=== PATIENT | female | born 1945 | race Caucasian/White ===

== ENCOUNTER 2023-07-20 15:21 | Emergency (ER) | payer OTHER, SELFPAY ==
[2023-07-20 15:26] VITALS: BP 176/69
--- NOTE | 2023-07-20 15:51 | ED.GENMED ---
History of Present Illness
General
Chief Complaint: Urinary Symptoms
Source: patient
Time Seen by Provider: 07/20/23 15:50
Travel History
Have you had any contact with someone who has COVID-19?: No
Do you have any symptoms of coronavirus? Fever > 100 degrees, chills, cough, shortness of breath, sore throat, loss of taste or smell, muscle aches, or headache?: No
History of Present Illness
History of Present Illness:
78-year-old female presents in referral from family doctor's office. She is anticoagulated on Eliquis and has myelodysplastic syndrome. She has had 2 to 3 days worth of pink-colored bloody urine. She denies passing any clots. She denies dysuria
urgency or frequency. No fevers or lightheadedness. No flank pain. She states today the urine is more clear than it has been.
Past History
Past History
ED Past Medical History: Arrthythmia (Atrial fibrillation), HTN, Hypercholesterolemia, NIDDM and Hypothyroidism
ED Past Surgical History: and Other (Parathyroid surgery)
Phy Exam
Physical Exam
Physical Exam:
General: Well-appearing female no acute respiratory distress
HEENT: Normocephalic atraumatic
Heart: Regular rate and rhythm no murmurs
Lungs: Clear to auscultation bilaterally no wheezing
Abdomen: Soft nontender nondistended no guarding or rebound
Extremities: No cyanosis or edema
Course
Orders/Labs/Results
Orders:
Orders
07/20/23 16:00
CT Abd/pel Without Iv Or Oral Urgent
Comment:
Reason For Exam: hematuria
07/20/23 16:15
Complete Blood Count/With Diff Urgent
Comprehensive Metabolic Panel Urgent
Urinalysis Reflex To Culture Urgent
Date Specimen was Collected: 07/20/23
Time Specimen was Collected: 16:07
Urine Microscopic Reflex Cult Urgent
07/20/23 19:14
Cefdinir [Omnicef] 300 mg PO NOW STA
Abnormal Lab Results
07/20/23
16:15
WBC 14.2 H 10^3/uL
(4.8-10.8)
RBC 3.42 L 10^6/uL
(4.20-5.40)
Hgb 9.5 L g/dL
(12.0-16.0)
Hct 28.9 L %
(37.0-47.0)
MCHC 32.9 L g/dL
(33.0-37.0)
Abs Immat Gran (auto) 0.1 H 10^3/uL
(0-0.05)
Absolute Neuts (auto) 11.2 H 10^3/uL
(1.4-6.5)
Absolute Monos (auto) 1.1 H 10^3/uL
(0.1-0.6)
Neutrophils % 78.5 H %
(42.2-75.2)
Lymphocytes % 11.8 L %
(20.5-51.1)
BUN 48 H mg/dl
(7-17)
Creatinine 1.4 H mg/dL
(0.6-1.0)
Ur Occult Blood Reflex 2+ A
(Negative)
Urine RBC 3-6 A /HPF
(0-2)
Urine Bacteria (Reflex) Few A
(Negative)
Urine Glucose 3+ A
(Negative)
Urine Albumin (Reflex) 1+ A
(Neg - Trace)
07/20/23 16:15
07/20/23 16:15
Vital Signs
Initial and Last Documented VS:
Initial Vital Signs
Temp Pulse Resp BP Pulse Ox
98.2 F 73 16 176/69 97
07/20/23 15:26 07/20/23 15:26 07/20/23 15:26 07/20/23 15:26 07/20/23 15:26
Last Documented Vital Signs
Temp Pulse Resp BP Pulse Ox
98.2 F 73 16 176/69 97
07/20/23 15:26 07/20/23 15:26 07/20/23 15:26 07/20/23 15:26 07/20/23 15:26
MDM/Problems Addressed
Differential Diagnosis Includes:
Reported hematuria. Differential could include cystitis versus renal colic. Will check urinalysis and labs. CT pending
*Critical Care Note
Total Time (30-74mins, 75-104mins- exclusive of procedures): Not Applicable
Update Note
Update Note:
CT negative. UA with some bacteria and blood and white blood cells. Will cover for UTI with Omnicef. Hemoglobin stable. Patient nontoxic. Leukocytosis with a white blood cell count of 14 but afebrile no symptoms otherwise. Stable for discharge
with follow-up
ED Attending Note
-
Portions of this chart may have been created with voice recognition software.� Occasional wrong word or��sound alike� substitutions may have occurred due to the inherent limitations of voice recognition software.
Discharge Plan
Departure
Patient Disposition: Home (Routine Discharge)
Date of Disposition: 07/20/23
Time of Disposition: 19:15
Patient with high blood pressure during this ER visit?: No
Discharge Problem:
Acute cystitis
Instructions: Urinary Tract Infection, Adult (DC)
Prescriptions:
New
cefdinir 300 mg capsule
300 mg PO BID Qty: 13 0RF
No Action
metformin 500 mg tablet
500 mg PO DAILY@1700
simvastatin 40 mg tablet
40 mg PO DAILY@1999
diltiazem HCl 300 mg capsule,extended release 24hr
300 mg PO DAILY@1999
fenofibrate nanocrystallized 145 mg tablet
145 mg PO DAILY
Jardiance 10 mg tablet
10 mg PO DAILY
docusate sodium [Colace] 100 mg capsule
100 mg PO BID Qty: 60 0RF
ferrous sulfate [iron] 325 mg (65 mg iron) Tablet
325 mg PO DAILY@1400
metoprolol tartrate 50 mg Tablet
25 mg PO DAILY@2000
Rx Instructions:
07/20/2023, take with 25 mg for a total of 50 mg.
hydralazine 50 mg Tablet
50 mg PO TID
Eliquis 5 mg Tablet
5 mg PO BID
cyanocobalamin (vitamin B-12) 1,000 mcg tablet
1,000 mcg PO DAILY@1400
metoprolol tartrate 50 mg tablet
50 mg PO DAILY
Rx Instructions:
07/20/2023, take with 25 mg for a total of 75 mg.
metoprolol tartrate 25 mg tablet
25 mg PO BID
Referrals:
Dion Bates DO [Family Provider] -
Activity Restrictions/Additional Instructions:
Use antibiotics as directed. Please return here for increasing bleeding fever or other concerning finding. Follow-up with family doctor otherwise to have urine rechecked
Interventions
Interventions:
*Risk Screen - Suicide Last Done: 07/20/23 16:11
*General Assessment Last Done: 07/20/23 16:11
*Neglect/Abuse Screening Last Done: 07/20/23 16:11
ED- Fall Risk Assessment Last Done: 07/20/23 15:45
*ED COVID-19 Vaccine History Last Done: 07/20/23 15:26
ED-Female Genitourinary Assessment Last Done: 07/20/23 15:45
[2023-07-20 16:11] VITALS: BMI 26.7
[2023-07-20 16:24] LABS: % Basophils 0.4 % (0-2); % Eosinophils 1.2 % (0-6); % Immature Granulocytes 0.4 % (0-0.5); % Lymphocytes 11.8 % (20.5-51.1); % Monocytes 7.7 % (1.7-9.3); % Neutrophils 78.5 % (42.2-75.2); Absolute Basophils 0.1 10^3/uL (0-0.2); Absolute Eosinophils 0.2 10^3/uL (0-0.7); Absolute Immature Granulocytes 0.1 10^3/uL (0-0.05); Absolute Lymphocytes 1.7 10^3/uL (1.2-3.4); Absolute Monocytes 1.1 10^3/uL (0.1-0.6); Absolute Neutrophils 11.2 10^3/uL (1.4-6.5); Hematocrit 28.9 % (37.0-47.0); Hemoglobin 9.5 g/dL (12.0-16.0); Mean Corp Hgb Conc. 32.9 g/dL (33.0-37.0); Mean Corpuscular Hgb 27.8 pg (27.0-31.0); Mean Corpuscular Volume 84.5 fL (81.0-99.0); Mean Platelet Volume 9.9 fL (7.4-10.4); Nucleated Red Blood Cells % 0 %; Platelet Count 373 10^3/uL (130-400); Red Blood Cell Count 3.42 10^6/uL (4.20-5.40); Red Cell Dist. Width 13.1 % (11.5-14.5); White Blood Cell Count 14.2 10^3/uL (4.8-10.8)
[2023-07-20 16:30] LABS: Urine Albumin 1+ (Neg - Trace); Urine Bilirubin Negative (Negative); Urine Character Clear (Clear); Urine Color Yellow; Urine Glucose 3+ (Negative); Urine Ketone Negative (Negative); Urine Leukocyte Negative (Negative); Urine Nitrite Negative (Negative); Urine Occult Blood 2+ (Negative); Urine Specific Gravity 1.015 (<1.030); Urine Urobilinogen Negative (Neg - 1+)
[2023-07-20 16:40] LABS: Urine Bacteria Few (Negative); Urine White Cell 0-2 /HPF (0-5)
[2023-07-20 16:41] LABS: ALT (SGPT) 18 U/L (0-35); AST (SGOT) 31 U/L (14-36); Albumin 3.9 g/dl (3.5-5.0); Alkaline Phosphatase 58 U/L (38-126); Blood Urea Nitrogen 48 mg/dl (7-17); Calcium 9.8 mg/dl (8.4-10.2); Carbon Dioxide 22 mmol/L (22-30); Chloride 104 mmol/L (98-107); Estimated Creatinine Clearance 30 ml/min; Glucose 79 mg/dl (70-99); Potassium 4.2 mmol/L (3.5-5.1); Sodium 137 mmol/L (135-145); Total Bilirubin 0.5 mg/dl (0.2-1.3); eGFR 38.03
[2023-07-20 19:27] VITALS: BP 167/92
[2023-07-20] MEDS: OMNICEF 300 MG PO (19:31)
== END 2023-07-20 19:40 | disposition home or self-care (01) ==
LOC: EMR 15:21
PROVIDERS: Physician Assistant; EMERGENCY PHYSICIAN Emergency Medicine; FAMILY PHYSICIAN Family Medicine
DX: N30.01 Acute cystitis with hematuria (principal); Z79.01 Long term (current) use of anticoagulants
CPT/HCPCS: 99284; 74176; 80053; 81003; 81015; 85025

== ENCOUNTER → 2023-07-27 14:51 | Outpatient (REF) | payer OTHER, SELFPAY ==
[2023-07-27 15:02] LABS: % Basophils 0.6 % (0-2); % Eosinophils 2.6 % (0-6); % Immature Granulocytes 0.2 % (0-0.5); % Lymphocytes 16.7 % (20.5-51.1); % Monocytes 7.8 % (1.7-9.3); % Neutrophils 72.1 % (42.2-75.2); Absolute Basophils 0.1 10^3/uL (0-0.2); Absolute Eosinophils 0.3 10^3/uL (0-0.7); Absolute Monocytes 0.9 10^3/uL (0.1-0.6); Absolute Neutrophils 8.5 10^3/uL (1.4-6.5); Hematocrit 30.5 % (37.0-47.0); Mean Corp Hgb Conc. 32.8 g/dL (33.0-37.0); Mean Corpuscular Hgb 27.9 pg (27.0-31.0); Mean Platelet Volume 9.7 fL (7.4-10.4); Platelet Count 324 10^3/uL (130-400); Red Blood Cell Count 3.59 10^6/uL (4.20-5.40); Red Cell Dist. Width 13.2 % (11.5-14.5); White Blood Cell Count 11.7 10^3/uL (4.8-10.8)
[2023-07-27 15:54] LABS: Blood Urea Nitrogen 35 mg/dl (7-17); Iron 60 ug/dl (37-170)
[2023-07-27 16:04] LABS: Percent Saturation 17 % (20-50); Total Iron Binding Capacity 341 ug/dl (265-497)
== END ==
LOC: OIDL 14:51
PROVIDERS: ATTENDING PHYSICIAN Internal Medicine Hematology & Oncology
DX: D50.9 Iron deficiency anemia, unspecified (principal)
CPT/HCPCS: 36415; 82565; 82728; 83540; 83550; 84520; 85025

== ENCOUNTER → 2023-08-17 12:46 | Outpatient (REF) | payer OTHER, SELFPAY ==
[2023-08-17 13:21] LABS: % Basophils 0.4 % (0-2); % Eosinophils 2.3 % (0-6); % Immature Granulocytes 0.2 % (0-0.5); % Monocytes 9.4 % (1.7-9.3); % Neutrophils 74.7 % (42.2-75.2); Absolute Eosinophils 0.2 10^3/uL (0-0.7); Absolute Lymphocytes 1.3 10^3/uL (1.2-3.4); Absolute Monocytes 0.9 10^3/uL (0.1-0.6); Absolute Neutrophils 7.4 10^3/uL (1.4-6.5); Hematocrit 29.3 % (37.0-47.0); Hemoglobin 9.6 g/dL (12.0-16.0); Mean Corp Hgb Conc. 32.8 g/dL (33.0-37.0); Mean Corpuscular Hgb 27.7 pg (27.0-31.0); Mean Corpuscular Volume 84.4 fL (81.0-99.0); Mean Platelet Volume 9.9 fL (7.4-10.4); Platelet Count 285 10^3/uL (130-400); Red Blood Cell Count 3.47 10^6/uL (4.20-5.40); White Blood Cell Count 9.9 10^3/uL (4.8-10.8)
== END ==
LOC: OIDL 12:46
PROVIDERS: ATTENDING PHYSICIAN Internal Medicine Hematology & Oncology; FAMILY PHYSICIAN Family Medicine
DX: D50.9 Iron deficiency anemia, unspecified (principal)
CPT/HCPCS: 36415; 85025

== ENCOUNTER → 2023-09-07 13:26 | Outpatient (REF) | payer OTHER, SELFPAY ==
[2023-09-07 13:36] LABS: % Basophils 0.4 % (0-2); % Immature Granulocytes 0.1 % (0-0.5); % Lymphocytes 15.9 % (20.5-51.1); % Monocytes 16.4 % (1.7-9.3); % Neutrophils 65.2 % (42.2-75.2); Absolute Eosinophils 0.2 10^3/uL (0-0.7); Absolute Lymphocytes 1.3 10^3/uL (1.2-3.4); Absolute Monocytes 1.3 10^3/uL (0.1-0.6); Absolute Neutrophils 5.4 10^3/uL (1.4-6.5); Hemoglobin 10.1 g/dL (12.0-16.0); Mean Corp Hgb Conc. 32.6 g/dL (33.0-37.0); Mean Corpuscular Hgb 27.9 pg (27.0-31.0); Mean Corpuscular Volume 85.6 fL (81.0-99.0); Mean Platelet Volume 10.1 fL (7.4-10.4); Platelet Count 273 10^3/uL (130-400); Red Blood Cell Count 3.62 10^6/uL (4.20-5.40); Red Cell Dist. Width 14.4 % (11.5-14.5); White Blood Cell Count 8.2 10^3/uL (4.8-10.8)
== END ==
LOC: OIDL 13:26
PROVIDERS: ATTENDING PHYSICIAN Internal Medicine Hematology & Oncology; FAMILY PHYSICIAN Family Medicine
DX: D50.9 Iron deficiency anemia, unspecified (principal)
CPT/HCPCS: 36415; 85025

== ENCOUNTER 2023-09-26 15:40 | Emergency (ER) | payer OTHER, SELFPAY ==
[2023-09-26 15:42] VITALS: BP 161/62
[2023-09-26 18:00] VITALS: BP 139/85
--- NOTE | 2023-09-26 18:13 | ED.GENMED ---
History of Present Illness
General
Chief Complaint: Dental Problem
Source: patient
Exam Limitations: none
Time Seen by Provider: 09/26/23 17:33
Nursing documentation reviewed up to this point in time: agreed with
Travel History
Have you had any contact with someone who has COVID-19?: No
Do you have any symptoms of coronavirus? Fever > 100 degrees, chills, cough, shortness of breath, sore throat, loss of taste or smell, muscle aches, or headache?: No
History of Present Illness
History of Present Illness:
78-year-old female with a history of kidney disease, A-fib on Eliquis, hypertension, hyperlipidemia presents to the ER for evaluation of left-sided facial swelling and tooth pain. Patient started with tooth pain several days ago and yesterday
started left-sided facial swelling. She went to urgent care and reports she was sent here to the ER for CAT scan. She reports the swelling is slightly worse than yesterday. She denies any fever chills she denies any difficulty breathing or
difficulty swallowing. She has not been on antibiotics yet. She does not have a dentist.
Past History
Past History
ED Past Medical History: Arrthythmia (Atrial fibrillation), HTN, Hypercholesterolemia, NIDDM and Hypothyroidism
ED Past Surgical History: and Other (Parathyroid surgery)
Review of Systems
Review of Systems
Allergies reviewed?: Yes
All Other Systems: ROS reviewed and negative except as documented in HPI and ROS
Constitutional: Reports no symptoms; Denies fever, fatigue or chills
EENT: Reports other (Left upper tooth pain times past several days left upper facial swelling)
Respiratory: Reports no symptoms; Denies trouble breathing
Musculoskeletal: Reports no symptoms
Skin: Reports no symptoms
Hematologic/Lymphatic: Reports no symptoms
Psychiatric: Reports no symptoms
Phy Exam
General Physical Exam
General Presentation: no apparent distress
General age: appears stated age
General Skin: warm and dry
General Habitus: elderly
General Mental: alert
ENT Exam
ENT Exam: other (Left-sided facial swelling no trismus no drooling tolerating secretions about very poor dental hygiene + loose tooth ? #11 or 12 mildly tender on palpation no erythema to face )
Neurological Exam
Neurological Exam: alert and oriented x3
Musculoskeletal Exam
Musculoskeletal Exam: full ROM and neck pain
Skin Exam
Skin Exam: normal color and warm/dry
Psychiatric Exam
Psychiatric Exam: normal mood/affect
Course
Orders/Labs/Results
Orders:
Orders
09/26/23 18:32
Amoxicillin [Amoxil] 500 mg PO NOW STA
09/26/23 18:52
Amoxicillin [Amoxil] 500 mg PO NOW STA
Vital Signs
Initial and Last Documented VS:
Initial Vital Signs
Temp Pulse Resp BP Pulse Ox
98.9 F 77 18 161/62 95
09/26/23 15:42 09/26/23 15:42 09/26/23 15:42 09/26/23 15:42 09/26/23 15:42
Last Documented Vital Signs
Temp Pulse Resp BP Pulse Ox
98.9 F 68 20 139/85 99
09/26/23 15:42 09/26/23 18:00 09/26/23 18:00 09/26/23 18:00 09/26/23 18:00
MDM/Problems Addressed
Differential Diagnosis Includes:
not limited to: dental cavity, abscess
MDM/Problems Addressed:
Patient is an 78-year-old female with A-fib on Eliquis kidney disease presents to the ER sent by urgent care. Patient started with left upper tooth discomfort for the past several days and noticed swelling yesterday. She went to urgent care today
because of the swelling and was sent here to the ER. She tells me they told her she needed a CAT scan. On exam she is in no acute distress she has mild to moderate swelling to left face but no drooling no difficulty breathing tired secretions well
denies any fevers and she is afebrile no trismus. She has widespread dental decay left upper tooth it is questionable if it is tooth #11 or 12 because of the poor hygiene and missing teeth this is mildly tender and loose on exam.
As patient has a history of kidney disease we will hold off on CAT scan with contrast. Patient is nontoxic no fevers afebrile here. Case reviewed with oral surgery who does state that they can see patient tomorrow. discussed will start pt on
amox. i reviewed plan with pt and daughter importance however to return to the ED if any worsening of symptoms if increasing facial swelling pain fever difficulty opening mouth or any concerns .
Chronic conditions affecting care:
renal disease followed by nephrology
*Pulse Oximetry
Patient hypoxic: no
*Critical Care Note
Total Time (30-74mins, 75-104mins- exclusive of procedures): Not Applicable
ED Attending Note
-
Portions of this chart may have been created with voice recognition software.� Occasional wrong word or��sound alike� substitutions may have occurred due to the inherent limitations of voice recognition software.
Discharge Plan
Departure
Patient Disposition: Home (Routine Discharge)
Date of Disposition: 09/26/23
Time of Disposition: 18:40
Patient with high blood pressure during this ER visit?: Yes
Covid-19: Not Applicable
Discharge Problem:
Abscess, dental
Instructions: Tooth Abscess (DC), Tooth Decay, Adult (DC), BLOOD PRESSURE
Prescriptions:
New
amoxicillin 500 mg capsule
500 mg PO Q8H Qty: 30 0RF
No Action
metformin 500 mg tablet
500 mg PO DAILY@1700
simvastatin 40 mg tablet
40 mg PO DAILY@1999
diltiazem HCl 300 mg capsule,extended release 24hr
300 mg PO DAILY@1999
fenofibrate nanocrystallized 145 mg tablet
145 mg PO DAILY
Jardiance 10 mg tablet
10 mg PO DAILY
docusate sodium [Colace] 100 mg capsule
100 mg PO BID Qty: 60 0RF
ferrous sulfate [iron] 325 mg (65 mg iron) Tablet
325 mg PO DAILY@1400
metoprolol tartrate 50 mg Tablet
25 mg PO DAILY@2000
Rx Instructions:
07/20/2023, take with 25 mg for a total of 50 mg.
hydralazine 50 mg Tablet
50 mg PO TID
Eliquis 5 mg Tablet
5 mg PO BID
cyanocobalamin (vitamin B-12) 1,000 mcg tablet
1,000 mcg PO DAILY@1400
metoprolol tartrate 50 mg tablet
50 mg PO DAILY
Rx Instructions:
07/20/2023, take with 25 mg for a total of 75 mg.
metoprolol tartrate 25 mg tablet
25 mg PO BID
cefdinir 300 mg capsule
300 mg PO BID Qty: 13 0RF
Referrals:
Miriam Chapa DDS [Active] -
Dion Bates DO [Family Provider] -
Activity Restrictions/Additional Instructions:
As discussed please take antibiotic, amoxicillin 3 times daily for the next 10 days. You were given 1 dose here in the ER please try to get another dose in tonight. This medication was sent to your pharmacy as requested.
the oral maxillofacial surgeon office should call you tomorrow morning to schedule an appointment for tomorrow.
If they do not please give them a call to schedule an appointment.
Return if any worsening of symptoms of increasing facial swelling pain fever chills difficulty breathing difficulty opening mouth or any further concerns.
Interventions
Interventions:
*Risk Screen - Suicide Last Done: 09/26/23 15:42
*General Assessment Last Done: 09/26/23 15:42
*Neglect/Abuse Screening Last Done: 09/26/23 15:42
*Nursing Disposition Last Done: 09/26/23 18:57
Discharge Date and Time
Discharge Date/Time: 09/26/23 18:58
Print Language: ROMANIAN
[2023-09-26] MEDS: AMOXIL 500 MG PO ×2 (18:48→18:55)
== END 2023-09-26 18:58 | disposition home or self-care (01) ==
LOC: EMR 15:40
PROVIDERS: EMERGENCY PHYSICIAN Emergency Medicine; FAMILY PHYSICIAN Family Medicine
DX: K04.7 Periapical abscess without sinus (principal); I10 Essential (primary) hypertension; I48.91 Unspecified atrial fibrillation; N28.9 Disorder of kidney and ureter, unspecified; Z79.01 Long term (current) use of anticoagulants
CPT/HCPCS: 99283

== ENCOUNTER → 2023-09-28 12:41 | Outpatient (REF) | payer OTHER, SELFPAY ==
[2023-09-28 12:51] LABS: % Basophils 0.6 % (0-2); % Eosinophils 1.6 % (0-6); % Immature Granulocytes 0.1 % (0-0.5); % Lymphocytes 16.4 % (20.5-51.1); % Monocytes 10.8 % (1.7-9.3); % Neutrophils 70.5 % (42.2-75.2); Absolute Basophils 0.1 10^3/uL (0-0.2); Absolute Eosinophils 0.1 10^3/uL (0-0.7); Absolute Lymphocytes 1.3 10^3/uL (1.2-3.4); Absolute Monocytes 0.9 10^3/uL (0.1-0.6); Absolute Neutrophils 5.6 10^3/uL (1.4-6.5); Hematocrit 31.5 % (37.0-47.0); Hemoglobin 10.3 g/dL (12.0-16.0); Mean Corp Hgb Conc. 32.7 g/dL (33.0-37.0); Mean Corpuscular Hgb 28.2 pg (27.0-31.0); Mean Corpuscular Volume 86.3 fL (81.0-99.0); Mean Platelet Volume 9.9 fL (7.4-10.4); Platelet Count 316 10^3/uL (130-400); Red Blood Cell Count 3.65 10^6/uL (4.20-5.40); Red Cell Dist. Width 13.7 % (11.5-14.5)
== END ==
LOC: OIDL 12:41
PROVIDERS: ATTENDING PHYSICIAN Internal Medicine Hematology & Oncology; FAMILY PHYSICIAN Family Medicine
DX: D50.9 Iron deficiency anemia, unspecified (principal)
CPT/HCPCS: 36415; 85025

== ENCOUNTER → 2023-10-19 10:20 | Outpatient (REF) | payer OTHER, SELFPAY ==
[2023-10-19 11:01] LABS: % Basophils 0.8 % (0-2); % Lymphocytes 23.4 % (20.5-51.1); % Monocytes 9.8 % (1.7-9.3); Absolute Eosinophils 0.2 10^3/uL (0-0.7); Absolute Lymphocytes 1.2 10^3/uL (1.2-3.4); Absolute Monocytes 0.5 10^3/uL (0.1-0.6); Absolute Neutrophils 3.3 10^3/uL (1.4-6.5); Hematocrit 36.5 % (37.0-47.0); Hemoglobin 11.7 g/dL (12.0-16.0); Mean Corp Hgb Conc. 32.1 g/dL (33.0-37.0); Mean Corpuscular Hgb 27.5 pg (27.0-31.0); Mean Corpuscular Volume 85.7 fL (81.0-99.0); Mean Platelet Volume 9.9 fL (7.4-10.4); Platelet Count 268 10^3/uL (130-400); Red Blood Cell Count 4.26 10^6/uL (4.20-5.40); Red Cell Dist. Width 13.7 % (11.5-14.5); White Blood Cell Count 5.3 10^3/uL (4.8-10.8)
== END ==
LOC: OIDL 10:20
PROVIDERS: ATTENDING PHYSICIAN Internal Medicine Hematology & Oncology; FAMILY PHYSICIAN Family Medicine
DX: D50.9 Iron deficiency anemia, unspecified (principal)
CPT/HCPCS: 36415; 85025

== ENCOUNTER → 2023-10-20 09:55 | Outpatient (REF) | payer OTHER, SELFPAY ==
[2023-10-20 11:35] LABS: Iron 71 ug/dl (37-170)
[2023-10-20 11:47] LABS: Percent Saturation 20 % (20-50); Total Iron Binding Capacity 349 ug/dl (265-497)
== END ==
LOC: REG 09:55
PROVIDERS: ATTENDING PHYSICIAN Internal Medicine Hematology & Oncology; FAMILY PHYSICIAN Family Medicine
DX: D50.9 Iron deficiency anemia, unspecified (principal); D50.0 Iron deficiency anemia secondary to blood loss (chronic); D46.9 Myelodysplastic syndrome, unspecified
CPT/HCPCS: 36415; 82728; 83540; 83550

== ENCOUNTER → 2023-11-09 13:08 | Outpatient (REF) | payer OTHER, SELFPAY ==
[2023-11-09 13:27] LABS: % Basophils 0.3 % (0-2); % Eosinophils 2.7 % (0-6); % Immature Granulocytes 0.2 % (0-0.5); % Lymphocytes 16.8 % (20.5-51.1); Absolute Eosinophils 0.3 10^3/uL (0-0.7); Absolute Lymphocytes 1.6 10^3/uL (1.2-3.4); Absolute Monocytes 0.8 10^3/uL (0.1-0.6); Absolute Neutrophils 6.8 10^3/uL (1.4-6.5); Hematocrit 38.9 % (37.0-47.0); Hemoglobin 12.4 g/dL (12.0-16.0); Mean Corp Hgb Conc. 31.9 g/dL (33.0-37.0); Mean Corpuscular Hgb 26.8 pg (27.0-31.0); Mean Platelet Volume 9.9 fL (7.4-10.4); Platelet Count 272 10^3/uL (130-400); Red Blood Cell Count 4.63 10^6/uL (4.20-5.40); Red Cell Dist. Width 13.9 % (11.5-14.5); White Blood Cell Count 9.4 10^3/uL (4.8-10.8)
[2023-11-09 15:55] LABS: Blood Urea Nitrogen 54 mg/dl (7-17); Iron 80 ug/dl (37-170)
[2023-11-09 16:03] LABS: Percent Saturation 22 % (20-50); Total Iron Binding Capacity 363 ug/dl (265-497)
== END ==
LOC: OIDL 13:08
PROVIDERS: ATTENDING PHYSICIAN Internal Medicine Hematology & Oncology
DX: D50.9 Iron deficiency anemia, unspecified (principal)
CPT/HCPCS: 36415; 82565; 82728; 83540; 83550; 84520; 85025

== ENCOUNTER → 2023-12-14 12:26 | Outpatient (REF) | payer OTHER, SELFPAY ==
[2023-12-14 12:42] LABS: % Basophils 0.4 % (0-2); % Immature Granulocytes 0.2 % (0-0.5); % Lymphocytes 18.4 % (20.5-51.1); % Monocytes 9.2 % (1.7-9.3); % Neutrophils 68.8 % (42.2-75.2); Absolute Eosinophils 0.3 10^3/uL (0-0.7); Absolute Lymphocytes 1.5 10^3/uL (1.2-3.4); Absolute Monocytes 0.8 10^3/uL (0.1-0.6); Absolute Neutrophils 5.8 10^3/uL (1.4-6.5); Hematocrit 33.2 % (37.0-47.0); Hemoglobin 10.9 g/dL (12.0-16.0); Mean Corp Hgb Conc. 32.8 g/dL (33.0-37.0); Mean Corpuscular Hgb 27.2 pg (27.0-31.0); Mean Corpuscular Volume 82.8 fL (81.0-99.0); Mean Platelet Volume 10.1 fL (7.4-10.4); Platelet Count 263 10^3/uL (130-400); Red Blood Cell Count 4.01 10^6/uL (4.20-5.40); Red Cell Dist. Width 14.4 % (11.5-14.5); White Blood Cell Count 8.4 10^3/uL (4.8-10.8)
== END ==
LOC: OIDL 12:26
PROVIDERS: ATTENDING PHYSICIAN Internal Medicine Hematology & Oncology
DX: D50.9 Iron deficiency anemia, unspecified (principal)
CPT/HCPCS: 36415; 85025

== ENCOUNTER → 2024-01-04 12:45 | Outpatient (REF) | payer OTHER, SELFPAY ==
[2024-01-04 12:58] LABS: % Basophils 0.5 % (0-2); % Immature Granulocytes 0.2 % (0-0.5); % Lymphocytes 20.4 % (20.5-51.1); % Monocytes 8.5 % (1.7-9.3); % Neutrophils 67.4 % (42.2-75.2); Absolute Eosinophils 0.3 10^3/uL (0-0.7); Absolute Lymphocytes 1.7 10^3/uL (1.2-3.4); Absolute Monocytes 0.7 10^3/uL (0.1-0.6); Absolute Neutrophils 5.7 10^3/uL (1.4-6.5); Hematocrit 34.1 % (37.0-47.0); Hemoglobin 11.1 g/dL (12.0-16.0); Mean Corp Hgb Conc. 32.6 g/dL (33.0-37.0); Mean Corpuscular Hgb 27.3 pg (27.0-31.0); Mean Corpuscular Volume 83.8 fL (81.0-99.0); Mean Platelet Volume 9.9 fL (7.4-10.4); Platelet Count 280 10^3/uL (130-400); Red Blood Cell Count 4.07 10^6/uL (4.20-5.40); Red Cell Dist. Width 15.6 % (11.5-14.5); White Blood Cell Count 8.4 10^3/uL (4.8-10.8)
== END ==
LOC: OIDL 12:45
PROVIDERS: ATTENDING PHYSICIAN Internal Medicine Hematology & Oncology; FAMILY PHYSICIAN Family Medicine
DX: D50.9 Iron deficiency anemia, unspecified (principal); D50.0 Iron deficiency anemia secondary to blood loss (chronic); D46.9 Myelodysplastic syndrome, unspecified
CPT/HCPCS: 36415; 85025

== ENCOUNTER → 2024-01-25 12:23 | Outpatient (REF) | payer OTHER, SELFPAY ==
[2024-01-25 12:40] LABS: % Basophils 0.3 % (0-2); % Eosinophils 3.5 % (0-6); % Immature Granulocytes 0.2 % (0-0.5); % Lymphocytes 19.2 % (20.5-51.1); % Monocytes 8.9 % (1.7-9.3); % Neutrophils 67.9 % (42.2-75.2); Absolute Eosinophils 0.3 10^3/uL (0-0.7); Absolute Lymphocytes 1.7 10^3/uL (1.2-3.4); Absolute Monocytes 0.8 10^3/uL (0.1-0.6); Absolute Neutrophils 5.9 10^3/uL (1.4-6.5); Hematocrit 35.5 % (37.0-47.0); Hemoglobin 11.4 g/dL (12.0-16.0); Mean Corp Hgb Conc. 32.1 g/dL (33.0-37.0); Mean Corpuscular Hgb 27.6 pg (27.0-31.0); Mean Platelet Volume 9.9 fL (7.4-10.4); Platelet Count 260 10^3/uL (130-400); Red Blood Cell Count 4.13 10^6/uL (4.20-5.40); Red Cell Dist. Width 15.5 % (11.5-14.5); White Blood Cell Count 8.8 10^3/uL (4.8-10.8)
== END ==
LOC: OIDL 12:23
PROVIDERS: ATTENDING PHYSICIAN Internal Medicine Hematology & Oncology; FAMILY PHYSICIAN Family Medicine
DX: D50.9 Iron deficiency anemia, unspecified (principal); D50.0 Iron deficiency anemia secondary to blood loss (chronic); D46.9 Myelodysplastic syndrome, unspecified
CPT/HCPCS: 36415; 85025

== ENCOUNTER → 2024-02-15 12:37 | Outpatient (REF) | payer OTHER, SELFPAY ==
[2024-02-15 13:00] LABS: % Basophils 0.4 % (0-2); % Immature Granulocytes 0.1 % (0-0.5); % Monocytes 7.7 % (1.7-9.3); % Neutrophils 75.8 % (42.2-75.2); Absolute Eosinophils 0.2 10^3/uL (0-0.7); Absolute Lymphocytes 1.3 10^3/uL (1.2-3.4); Absolute Monocytes 0.7 10^3/uL (0.1-0.6); Absolute Neutrophils 7.1 10^3/uL (1.4-6.5); Hematocrit 35.4 % (37.0-47.0); Hemoglobin 11.3 g/dL (12.0-16.0); Mean Corp Hgb Conc. 31.9 g/dL (33.0-37.0); Mean Corpuscular Hgb 27.6 pg (27.0-31.0); Mean Corpuscular Volume 86.6 fL (81.0-99.0); Mean Platelet Volume 9.9 fL (7.4-10.4); Platelet Count 253 10^3/uL (130-400); Red Blood Cell Count 4.09 10^6/uL (4.20-5.40); Red Cell Dist. Width 14.8 % (11.5-14.5); White Blood Cell Count 9.4 10^3/uL (4.8-10.8)
[2024-02-15 15:45] LABS: Iron 85 ug/dl (37-170)
[2024-02-15 15:56] LABS: Percent Saturation 25 % (20-50); Total Iron Binding Capacity 333 ug/dl (265-497)
== END ==
LOC: OIDL 12:37
PROVIDERS: ATTENDING PHYSICIAN Internal Medicine Hematology & Oncology; FAMILY PHYSICIAN Family Medicine
DX: D50.9 Iron deficiency anemia, unspecified (principal); D50.0 Iron deficiency anemia secondary to blood loss (chronic); D46.9 Myelodysplastic syndrome, unspecified
CPT/HCPCS: 36415; 82728; 83540; 83550; 85025

== ENCOUNTER → 2024-03-06 11:04 | Outpatient (REF) | payer OTHER, SELFPAY ==
[2024-03-06 13:01] LABS: % Eosinophils 3.1 % (0-6); % Immature Granulocytes 0.3 % (0-0.5); % Lymphocytes 17.5 % (20.5-51.1); % Monocytes 7.3 % (1.7-9.3); % Neutrophils 70.8 % (42.2-75.2); Absolute Basophils 0.1 10^3/uL (0-0.2); Absolute Eosinophils 0.2 10^3/uL (0-0.7); Absolute Lymphocytes 1.2 10^3/uL (1.2-3.4); Absolute Monocytes 0.5 10^3/uL (0.1-0.6); Absolute Neutrophils 4.7 10^3/uL (1.4-6.5); Hematocrit 35.5 % (37.0-47.0); Hemoglobin 11.4 g/dL (12.0-16.0); Mean Corp Hgb Conc. 32.1 g/dL (33.0-37.0); Mean Corpuscular Hgb 27.4 pg (27.0-31.0); Mean Corpuscular Volume 85.3 fL (81.0-99.0); Mean Platelet Volume 10.9 fL (7.4-10.4); Nucleated Red Blood Cells % 0 %; Platelet Count 281 10^3/uL (130-400); Red Blood Cell Count 4.16 10^6/uL (4.20-5.40); Red Cell Dist. Width 14.4 % (11.5-14.5); White Blood Cell Count 6.7 10^3/uL (4.8-10.8)
== END ==
LOC: REG 11:04
PROVIDERS: ATTENDING PHYSICIAN Internal Medicine Hematology & Oncology; FAMILY PHYSICIAN Family Medicine
DX: D50.9 Iron deficiency anemia, unspecified (principal); D50.0 Iron deficiency anemia secondary to blood loss (chronic); D46.9 Myelodysplastic syndrome, unspecified
CPT/HCPCS: 36415; 85025

== ENCOUNTER → 2024-03-28 12:36 | Outpatient (REF) | payer OTHER, SELFPAY ==
[2024-03-28 12:47] LABS: % Basophils 0.4 % (0-2); % Eosinophils 3.2 % (0-6); % Immature Granulocytes 0.1 % (0-0.5); % Lymphocytes 16.8 % (20.5-51.1); % Monocytes 8.8 % (1.7-9.3); % Neutrophils 70.7 % (42.2-75.2); Absolute Eosinophils 0.3 10^3/uL (0-0.7); Absolute Lymphocytes 1.5 10^3/uL (1.2-3.4); Absolute Monocytes 0.8 10^3/uL (0.1-0.6); Absolute Neutrophils 6.5 10^3/uL (1.4-6.5); Hematocrit 37.5 % (37.0-47.0); Hemoglobin 12.2 g/dL (12.0-16.0); Mean Corp Hgb Conc. 32.5 g/dL (33.0-37.0); Mean Corpuscular Hgb 27.7 pg (27.0-31.0); Mean Corpuscular Volume 85.2 fL (81.0-99.0); Mean Platelet Volume 9.7 fL (7.4-10.4); Platelet Count 251 10^3/uL (130-400); Red Cell Dist. Width 13.8 % (11.5-14.5); White Blood Cell Count 9.2 10^3/uL (4.8-10.8)
== END ==
LOC: OIDL 12:36
PROVIDERS: ATTENDING PHYSICIAN Internal Medicine Hematology & Oncology; FAMILY PHYSICIAN Family Medicine
DX: D50.9 Iron deficiency anemia, unspecified (principal); D50.0 Iron deficiency anemia secondary to blood loss (chronic); D46.9 Myelodysplastic syndrome, unspecified
CPT/HCPCS: 36415; 85025

== ENCOUNTER → 2024-04-18 12:48 | Outpatient (REF) | payer OTHER, SELFPAY ==
[2024-04-18 13:02] LABS: % Basophils 0.4 % (0-2); % Eosinophils 2.5 % (0-6); % Immature Granulocytes 0.1 % (0-0.5); % Lymphocytes 16.3 % (20.5-51.1); % Monocytes 8.4 % (1.7-9.3); % Neutrophils 72.3 % (42.2-75.2); Absolute Eosinophils 0.3 10^3/uL (0-0.7); Absolute Lymphocytes 1.6 10^3/uL (1.2-3.4); Absolute Monocytes 0.8 10^3/uL (0.1-0.6); Absolute Neutrophils 7.2 10^3/uL (1.4-6.5); Hematocrit 37.6 % (37.0-47.0); Hemoglobin 12.1 g/dL (12.0-16.0); Mean Corp Hgb Conc. 32.2 g/dL (33.0-37.0); Mean Corpuscular Hgb 26.9 pg (27.0-31.0); Mean Corpuscular Volume 83.7 fL (81.0-99.0); Mean Platelet Volume 9.7 fL (7.4-10.4); Platelet Count 255 10^3/uL (130-400); Red Blood Cell Count 4.49 10^6/uL (4.20-5.40); Red Cell Dist. Width 13.8 % (11.5-14.5); White Blood Cell Count 9.9 10^3/uL (4.8-10.8)
[2024-04-18 13:36] LABS: Blood Urea Nitrogen 38 mg/dl (7-17); Iron 102 ug/dl (37-170)
[2024-04-18 13:45] LABS: Percent Saturation 31 % (20-50); Total Iron Binding Capacity 322 ug/dl (265-497)
== END ==
LOC: OIDL 12:48
PROVIDERS: ATTENDING PHYSICIAN Internal Medicine Hematology & Oncology; FAMILY PHYSICIAN Family Medicine
DX: D50.9 Iron deficiency anemia, unspecified (principal); D50.0 Iron deficiency anemia secondary to blood loss (chronic); D46.9 Myelodysplastic syndrome, unspecified
CPT/HCPCS: 36415; 82565; 82728; 83540; 83550; 84520; 85025

== ENCOUNTER → 2024-05-09 12:35 | Outpatient (REF) | payer OTHER, SELFPAY ==
[2024-05-09 13:36] LABS: % Basophils 0.4 % (0-2); % Eosinophils 2.3 % (0-6); % Immature Granulocytes 0.4 % (0-0.5); % Lymphocytes 15.7 % (20.5-51.1); % Monocytes 8.8 % (1.7-9.3); % Neutrophils 72.4 % (42.2-75.2); Absolute Eosinophils 0.2 10^3/uL (0-0.7); Absolute Lymphocytes 1.5 10^3/uL (1.2-3.4); Absolute Monocytes 0.8 10^3/uL (0.1-0.6); Absolute Neutrophils 6.9 10^3/uL (1.4-6.5); Hematocrit 32.5 % (37.0-47.0); Hemoglobin 10.8 g/dL (12.0-16.0); Mean Corp Hgb Conc. 33.2 g/dL (33.0-37.0); Mean Corpuscular Volume 84.2 fL (81.0-99.0); Mean Platelet Volume 10.7 fL (7.4-10.4); Nucleated Red Blood Cells % 0 %; Platelet Count 250 10^3/uL (130-400); Red Blood Cell Count 3.86 10^6/uL (4.20-5.40); Red Cell Dist. Width 14.5 % (11.5-14.5); White Blood Cell Count 9.5 10^3/uL (4.8-10.8)
== END ==
LOC: OIDL 12:35
PROVIDERS: ATTENDING PHYSICIAN Internal Medicine Hematology & Oncology; FAMILY PHYSICIAN Family Medicine
DX: D50.9 Iron deficiency anemia, unspecified (principal); D50.0 Iron deficiency anemia secondary to blood loss (chronic); D46.9 Myelodysplastic syndrome, unspecified
CPT/HCPCS: 36415; 85025

== ENCOUNTER → 2024-05-30 12:34 | Outpatient (REF) | payer OTHER, SELFPAY ==
[2024-05-30 12:54] LABS: % Basophils 0.5 % (0-2); % Eosinophils 3.3 % (0-6); % Immature Granulocytes 0.4 % (0-0.5); % Lymphocytes 17.2 % (20.5-51.1); % Monocytes 9.6 % (1.7-9.3); Absolute Eosinophils 0.3 10^3/uL (0-0.7); Absolute Lymphocytes 1.3 10^3/uL (1.2-3.4); Absolute Monocytes 0.7 10^3/uL (0.1-0.6); Absolute Neutrophils 5.2 10^3/uL (1.4-6.5); Hemoglobin 9.8 g/dL (12.0-16.0); Mean Corp Hgb Conc. 32.7 g/dL (33.0-37.0); Mean Corpuscular Hgb 27.5 pg (27.0-31.0); Mean Corpuscular Volume 84.3 fL (81.0-99.0); Mean Platelet Volume 9.8 fL (7.4-10.4); Platelet Count 271 10^3/uL (130-400); Red Blood Cell Count 3.56 10^6/uL (4.20-5.40); Red Cell Dist. Width 14.8 % (11.5-14.5); White Blood Cell Count 7.5 10^3/uL (4.8-10.8)
== END ==
LOC: OIDL 12:34
PROVIDERS: ATTENDING PHYSICIAN Internal Medicine Hematology & Oncology; FAMILY PHYSICIAN Family Medicine
DX: D50.9 Iron deficiency anemia, unspecified (principal); D50.0 Iron deficiency anemia secondary to blood loss (chronic); D46.9 Myelodysplastic syndrome, unspecified
CPT/HCPCS: 36415; 85025

== ENCOUNTER → 2024-06-20 12:36 | Outpatient (REF) | payer OTHER, SELFPAY ==
[2024-06-20 13:07] LABS: % Basophils 0.4 % (0-2); % Immature Granulocytes 0.1 % (0-0.5); % Lymphocytes 15.5 % (20.5-51.1); % Monocytes 8.8 % (1.7-9.3); % Neutrophils 73.2 % (42.2-75.2); Absolute Eosinophils 0.2 10^3/uL (0-0.7); Absolute Lymphocytes 1.3 10^3/uL (1.2-3.4); Absolute Monocytes 0.7 10^3/uL (0.1-0.6); Absolute Neutrophils 5.9 10^3/uL (1.4-6.5); Hematocrit 33.1 % (37.0-47.0); Hemoglobin 10.6 g/dL (12.0-16.0); Mean Corpuscular Hgb 27.7 pg (27.0-31.0); Mean Corpuscular Volume 86.4 fL (81.0-99.0); Mean Platelet Volume 9.9 fL (7.4-10.4); Platelet Count 266 10^3/uL (130-400); Red Blood Cell Count 3.83 10^6/uL (4.20-5.40); Red Cell Dist. Width 15.2 % (11.5-14.5); White Blood Cell Count 8.1 10^3/uL (4.8-10.8)
== END ==
LOC: OIDL 12:36
PROVIDERS: ATTENDING PHYSICIAN Internal Medicine Hematology & Oncology; FAMILY PHYSICIAN Family Medicine
DX: D50.9 Iron deficiency anemia, unspecified (principal); D50.0 Iron deficiency anemia secondary to blood loss (chronic); D46.9 Myelodysplastic syndrome, unspecified
CPT/HCPCS: 36415; 85025

== ENCOUNTER → 2024-07-19 12:48 | Outpatient (REF) | payer OTHER, SELFPAY ==
[2024-07-19 13:18] LABS: % Basophils 0.2 % (0-2); % Immature Granulocytes 0.4 % (0-0.5); % Lymphocytes 18.4 % (20.5-51.1); % Monocytes 12.1 % (1.7-9.3); % Neutrophils 67.9 % (42.2-75.2); Absolute Eosinophils 0.1 10^3/uL (0-0.7); Absolute Lymphocytes 0.9 10^3/uL (1.2-3.4); Absolute Monocytes 0.6 10^3/uL (0.1-0.6); Absolute Neutrophils 3.3 10^3/uL (1.4-6.5); Hematocrit 29.9 % (37.0-47.0); Mean Corp Hgb Conc. 33.4 g/dL (33.0-37.0); Mean Corpuscular Hgb 28.4 pg (27.0-31.0); Mean Corpuscular Volume 84.9 fL (81.0-99.0); Mean Platelet Volume 10.2 fL (7.4-10.4); Platelet Count 189 10^3/uL (130-400); Red Blood Cell Count 3.52 10^6/uL (4.20-5.40); Red Cell Dist. Width 13.6 % (11.5-14.5); White Blood Cell Count 4.8 10^3/uL (4.8-10.8)
[2024-07-19 14:47] LABS: Iron 50 ug/dl (37-170)
[2024-07-19 14:56] LABS: Percent Saturation 17 % (20-50); Total Iron Binding Capacity 280 ug/dl (265-497)
== END ==
LOC: OIDL 12:48
PROVIDERS: ATTENDING PHYSICIAN Internal Medicine Hematology & Oncology; FAMILY PHYSICIAN Family Medicine
DX: D50.9 Iron deficiency anemia, unspecified (principal)
CPT/HCPCS: 36415; 82728; 83540; 83550; 85025

== ENCOUNTER → 2024-08-08 12:38 | Outpatient (REF) | payer OTHER, SELFPAY ==
[2024-08-08 13:05] LABS: % Basophils 0.3 % (0-2); % Eosinophils 2.4 % (0-6); % Immature Granulocytes 0.3 % (0-0.5); % Monocytes 10.1 % (1.7-9.3); % Neutrophils 68.9 % (42.2-75.2); Absolute Eosinophils 0.2 10^3/uL (0-0.7); Absolute Lymphocytes 1.4 10^3/uL (1.2-3.4); Absolute Monocytes 0.8 10^3/uL (0.1-0.6); Absolute Neutrophils 5.2 10^3/uL (1.4-6.5); Hematocrit 31.5 % (37.0-47.0); Hemoglobin 10.1 g/dL (12.0-16.0); Mean Corp Hgb Conc. 32.1 g/dL (33.0-37.0); Mean Corpuscular Hgb 28.1 pg (27.0-31.0); Mean Corpuscular Volume 87.5 fL (81.0-99.0); Mean Platelet Volume 9.9 fL (7.4-10.4); Platelet Count 272 10^3/uL (130-400); Red Cell Dist. Width 13.1 % (11.5-14.5); White Blood Cell Count 7.6 10^3/uL (4.8-10.8)
== END ==
LOC: OIDL 12:38
PROVIDERS: ATTENDING PHYSICIAN Internal Medicine Hematology & Oncology; FAMILY PHYSICIAN Family Medicine
DX: D50.9 Iron deficiency anemia, unspecified (principal); D50.0 Iron deficiency anemia secondary to blood loss (chronic); D46.9 Myelodysplastic syndrome, unspecified
CPT/HCPCS: 36415; 85025

== ENCOUNTER → 2024-08-29 12:39 | Outpatient (REF) | payer OTHER, SELFPAY ==
[2024-08-29 13:03] LABS: % Basophils 0.6 % (0-2); % Eosinophils 2.4 % (0-6); % Immature Granulocytes 0.1 % (0-0.5); % Lymphocytes 17.3 % (20.5-51.1); % Monocytes 9.4 % (1.7-9.3); % Neutrophils 70.2 % (42.2-75.2); Absolute Basophils 0.1 10^3/uL (0-0.2); Absolute Eosinophils 0.2 10^3/uL (0-0.7); Absolute Lymphocytes 1.5 10^3/uL (1.2-3.4); Absolute Monocytes 0.8 10^3/uL (0.1-0.6); Absolute Neutrophils 5.9 10^3/uL (1.4-6.5); Hematocrit 33.5 % (37.0-47.0); Hemoglobin 10.8 g/dL (12.0-16.0); Mean Corp Hgb Conc. 32.2 g/dL (33.0-37.0); Mean Corpuscular Hgb 27.8 pg (27.0-31.0); Mean Corpuscular Volume 86.1 fL (81.0-99.0); Mean Platelet Volume 10.2 fL (7.4-10.4); Platelet Count 258 10^3/uL (130-400); Red Blood Cell Count 3.89 10^6/uL (4.20-5.40); Red Cell Dist. Width 13.5 % (11.5-14.5); White Blood Cell Count 8.4 10^3/uL (4.8-10.8)
== END ==
LOC: OIDL 12:39
PROVIDERS: ATTENDING PHYSICIAN Internal Medicine Hematology & Oncology; FAMILY PHYSICIAN Family Medicine
DX: D50.9 Iron deficiency anemia, unspecified (principal); D50.0 Iron deficiency anemia secondary to blood loss (chronic); D46.9 Myelodysplastic syndrome, unspecified
CPT/HCPCS: 36415; 85025

== ENCOUNTER → 2024-09-19 12:30 | Outpatient (REF) | payer OTHER, SELFPAY ==
[2024-09-19 13:17] LABS: % Basophils 0.4 % (0-2); % Eosinophils 1.6 % (0-6); % Immature Granulocytes 0.2 % (0-0.5); % Lymphocytes 14.4 % (20.5-51.1); % Monocytes 7.3 % (1.7-9.3); % Neutrophils 76.1 % (42.2-75.2); Absolute Eosinophils 0.2 10^3/uL (0-0.7); Absolute Lymphocytes 1.3 10^3/uL (1.2-3.4); Absolute Monocytes 0.7 10^3/uL (0.1-0.6); Hematocrit 34.6 % (37.0-47.0); Mean Corp Hgb Conc. 31.8 g/dL (33.0-37.0); Mean Corpuscular Hgb 26.9 pg (27.0-31.0); Mean Corpuscular Volume 84.6 fL (81.0-99.0); Mean Platelet Volume 9.8 fL (7.4-10.4); Platelet Count 278 10^3/uL (130-400); Red Blood Cell Count 4.09 10^6/uL (4.20-5.40); Red Cell Dist. Width 13.9 % (11.5-14.5); White Blood Cell Count 9.2 10^3/uL (4.8-10.8)
== END ==
LOC: OIDL 12:30
PROVIDERS: ATTENDING PHYSICIAN Internal Medicine Hematology & Oncology; FAMILY PHYSICIAN Family Medicine
DX: D50.9 Iron deficiency anemia, unspecified (principal); D50.0 Iron deficiency anemia secondary to blood loss (chronic); D46.9 Myelodysplastic syndrome, unspecified
CPT/HCPCS: 36415; 85025

== ENCOUNTER → 2024-10-10 12:21 | Outpatient (REF) | payer OTHER, SELFPAY ==
[2024-10-10 12:59] LABS: % Basophils 0.4 % (0-2); % Eosinophils 1.8 % (0-6); % Immature Granulocytes 0.1 % (0-0.5); % Lymphocytes 12.9 % (20.5-51.1); % Monocytes 7.7 % (1.7-9.3); % Neutrophils 77.1 % (42.2-75.2); Absolute Eosinophils 0.2 10^3/uL (0-0.7); Absolute Lymphocytes 1.3 10^3/uL (1.2-3.4); Absolute Monocytes 0.8 10^3/uL (0.1-0.6); Absolute Neutrophils 7.5 10^3/uL (1.4-6.5); Hematocrit 34.1 % (37.0-47.0); Hemoglobin 10.9 g/dL (12.0-16.0); Mean Corpuscular Hgb 26.9 pg (27.0-31.0); Mean Corpuscular Volume 84.2 fL (81.0-99.0); Mean Platelet Volume 10.2 fL (7.4-10.4); Platelet Count 264 10^3/uL (130-400); Red Blood Cell Count 4.05 10^6/uL (4.20-5.40); Red Cell Dist. Width 14.3 % (11.5-14.5); White Blood Cell Count 9.7 10^3/uL (4.8-10.8)
== END ==
LOC: OIDL 12:21
PROVIDERS: Registered Nurse; ATTENDING PHYSICIAN Internal Medicine Hematology & Oncology; FAMILY PHYSICIAN Family Medicine
DX: D50.9 Iron deficiency anemia, unspecified (principal); D50.0 Iron deficiency anemia secondary to blood loss (chronic); D46.9 Myelodysplastic syndrome, unspecified
CPT/HCPCS: 36415; 85025

== ENCOUNTER → 2024-10-31 12:31 | Outpatient (REF) | payer OTHER, SELFPAY ==
[2024-10-31 12:58] LABS: % Basophils 0.5 % (0-2); % Eosinophils 1.9 % (0-6); % Immature Granulocytes 0.2 % (0-0.5); % Lymphocytes 14.5 % (20.5-51.1); % Monocytes 8.5 % (1.7-9.3); % Neutrophils 74.4 % (42.2-75.2); Absolute Eosinophils 0.2 10^3/uL (0-0.7); Absolute Lymphocytes 1.2 10^3/uL (1.2-3.4); Absolute Monocytes 0.7 10^3/uL (0.1-0.6); Absolute Neutrophils 6.3 10^3/uL (1.4-6.5); Hematocrit 31.8 % (37.0-47.0); Hemoglobin 10.2 g/dL (12.0-16.0); Mean Corp Hgb Conc. 32.1 g/dL (33.0-37.0); Mean Corpuscular Hgb 27.3 pg (27.0-31.0); Mean Corpuscular Volume 85.3 fL (81.0-99.0); Mean Platelet Volume 10.3 fL (7.4-10.4); Platelet Count 251 10^3/uL (130-400); Red Blood Cell Count 3.73 10^6/uL (4.20-5.40); Red Cell Dist. Width 14.5 % (11.5-14.5); White Blood Cell Count 8.5 10^3/uL (4.8-10.8)
== END ==
LOC: OIDL 12:31
PROVIDERS: ATTENDING PHYSICIAN Internal Medicine Hematology & Oncology; FAMILY PHYSICIAN Family Medicine
DX: D50.9 Iron deficiency anemia, unspecified (principal); D50.0 Iron deficiency anemia secondary to blood loss (chronic); D46.9 Myelodysplastic syndrome, unspecified
CPT/HCPCS: 36415; 85025

== ENCOUNTER → 2024-11-21 12:19 | Outpatient (REF) | payer OTHER, SELFPAY ==
[2024-11-21 13:12] LABS: % Basophils 0.4 % (0-2); % Eosinophils 1.7 % (0-6); % Immature Granulocytes 0.2 % (0-0.5); % Lymphocytes 12.9 % (20.5-51.1); % Monocytes 8.6 % (1.7-9.3); % Neutrophils 76.2 % (42.2-75.2); Absolute Eosinophils 0.1 10^3/uL (0-0.7); Absolute Lymphocytes 1.1 10^3/uL (1.2-3.4); Absolute Monocytes 0.7 10^3/uL (0.1-0.6); Absolute Neutrophils 6.5 10^3/uL (1.4-6.5); Hematocrit 34.6 % (37.0-47.0); Hemoglobin 11.1 g/dL (12.0-16.0); Mean Corp Hgb Conc. 32.1 g/dL (33.0-37.0); Mean Corpuscular Volume 84.2 fL (81.0-99.0); Mean Platelet Volume 10.1 fL (7.4-10.4); Platelet Count 268 10^3/uL (130-400); Red Blood Cell Count 4.11 10^6/uL (4.20-5.40); Red Cell Dist. Width 14.6 % (11.5-14.5); White Blood Cell Count 8.5 10^3/uL (4.8-10.8)
== END ==
LOC: OIDL 12:19
PROVIDERS: ATTENDING PHYSICIAN Internal Medicine Hematology & Oncology; FAMILY PHYSICIAN Family Medicine
DX: D50.9 Iron deficiency anemia, unspecified (principal); D50.0 Iron deficiency anemia secondary to blood loss (chronic); D46.9 Myelodysplastic syndrome, unspecified
CPT/HCPCS: 36415; 85025

== ENCOUNTER → 2024-12-12 12:28 | Outpatient (REF) | payer OTHER, SELFPAY ==
[2024-12-12 13:02] LABS: Hematocrit 33.6 % (37.0-47.0); Hemoglobin 10.7 g/dL (12.0-16.0); Mean Corp Hgb Conc. 31.8 g/dL (33.0-37.0); Mean Corpuscular Volume 84.8 fL (81.0-99.0); Platelet Count 253 10^3/uL (130-400); Red Cell Dist. Width 14.6 % (11.5-14.5)
== END ==
LOC: OIDL 12:28
PROVIDERS: ATTENDING PHYSICIAN Internal Medicine Hematology & Oncology; FAMILY PHYSICIAN Family Medicine
DX: D50.9 Iron deficiency anemia, unspecified (principal); D50.0 Iron deficiency anemia secondary to blood loss (chronic); D46.9 Myelodysplastic syndrome, unspecified
CPT/HCPCS: 36415; 85025

== ENCOUNTER → 2025-01-02 12:27 | Outpatient (REF) | payer OTHER, SELFPAY ==
[2025-01-02 13:21] LABS: Hematocrit 32.2 % (37.0-47.0); Hemoglobin 10.2 g/dL (12.0-16.0); Mean Corp Hgb Conc. 31.7 g/dL (33.0-37.0); Mean Corpuscular Volume 84.7 fL (81.0-99.0); Platelet Count 252 10^3/uL (130-400); Red Cell Dist. Width 14.4 % (11.5-14.5)
[2025-01-02 14:25] LABS: Iron 82 ug/dl (37-170)
[2025-01-02 14:34] LABS: Total Iron Binding Capacity 343 ug/dl (265-497)
[2025-01-02 14:57] LABS: Ferritin 103.0 ng/ml (11.1-264.0)
== END ==
LOC: OIDL 12:27
PROVIDERS: ATTENDING PHYSICIAN Internal Medicine Hematology & Oncology; FAMILY PHYSICIAN Family Medicine
DX: D50.9 Iron deficiency anemia, unspecified (principal); D50.0 Iron deficiency anemia secondary to blood loss (chronic); D46.9 Myelodysplastic syndrome, unspecified
CPT/HCPCS: 36415; 82728; 83540; 83550; 85025

== ENCOUNTER → 2025-01-23 12:33 | Outpatient (REF) | payer OTHER, SELFPAY ==
[2025-01-23 13:00] LABS: Hematocrit 35.4 % (37.0-47.0); Hemoglobin 11.3 g/dL (12.0-16.0); Mean Corp Hgb Conc. 31.9 g/dL (33.0-37.0); Mean Corpuscular Volume 84.5 fL (81.0-99.0); Platelet Count 300 10^3/uL (130-400); Red Cell Dist. Width 14.4 % (11.5-14.5)
== END ==
LOC: OIDL 12:33
PROVIDERS: ATTENDING PHYSICIAN Internal Medicine Hematology & Oncology; FAMILY PHYSICIAN Family Medicine
DX: D50.9 Iron deficiency anemia, unspecified (principal); D50.0 Iron deficiency anemia secondary to blood loss (chronic); D46.9 Myelodysplastic syndrome, unspecified
CPT/HCPCS: 36415; 85025

== ENCOUNTER → 2025-02-13 12:22 | Outpatient (REF) | payer OTHER, SELFPAY ==
[2025-02-13 12:33] LABS: Hematocrit 29.2 % (37.0-47.0); Hemoglobin 9.5 g/dL (12.0-16.0); Mean Corp Hgb Conc. 32.5 g/dL (33.0-37.0); Mean Corpuscular Volume 83.4 fL (81.0-99.0); Platelet Count 283 10^3/uL (130-400); Red Cell Dist. Width 15.0 % (11.5-14.5)
== END ==
LOC: OIDL 12:22
PROVIDERS: ATTENDING PHYSICIAN Internal Medicine Hematology & Oncology; FAMILY PHYSICIAN Family Medicine
DX: D50.9 Iron deficiency anemia, unspecified (principal); D50.0 Iron deficiency anemia secondary to blood loss (chronic); D46.9 Myelodysplastic syndrome, unspecified
CPT/HCPCS: 36415; 85025

== ENCOUNTER → 2025-03-06 12:43 | Outpatient (REF) | payer OTHER, SELFPAY ==
[2025-03-06 13:03] LABS: Hematocrit 29.8 % (37.0-47.0); Hemoglobin 9.5 g/dL (12.0-16.0); Mean Corp Hgb Conc. 31.9 g/dL (33.0-37.0); Mean Corpuscular Volume 85.4 fL (81.0-99.0); Platelet Count 303 10^3/uL (130-400); Red Cell Dist. Width 15.5 % (11.5-14.5)
== END ==
LOC: OIDL 12:43
PROVIDERS: ATTENDING PHYSICIAN Internal Medicine Hematology & Oncology; FAMILY PHYSICIAN Family Medicine
DX: D50.9 Iron deficiency anemia, unspecified (principal); D50.0 Iron deficiency anemia secondary to blood loss (chronic); D46.9 Myelodysplastic syndrome, unspecified
CPT/HCPCS: 36415; 85025

== ENCOUNTER → 2025-03-20 14:28 | Outpatient (REF) | payer OTHER, SELFPAY ==
[2025-03-20 15:56] LABS: Hematocrit 31.9 % (37.0-47.0); Hemoglobin 9.7 g/dL (12.0-16.0); Mean Corp Hgb Conc. 30.4 g/dL (33.0-37.0); Mean Corpuscular Volume 86.9 fL (81.0-99.0); Nucleated Red Blood Cells % 0 %; Platelet Count 333 10^3/uL (130-400); Red Cell Dist. Width 16.1 % (11.5-14.5)
[2025-03-20 16:14] LABS: Iron 22 ug/dl (37-170)
[2025-03-20 16:23] LABS: Total Iron Binding Capacity 389 ug/dl (265-497)
[2025-03-20 16:51] LABS: Ferritin 82.2 ng/ml (11.1-264.0)
== END ==
LOC: REG 14:28
PROVIDERS: ATTENDING PHYSICIAN Internal Medicine Hematology & Oncology; FAMILY PHYSICIAN Family Medicine
DX: D50.9 Iron deficiency anemia, unspecified (principal); D50.0 Iron deficiency anemia secondary to blood loss (chronic); D46.9 Myelodysplastic syndrome, unspecified
CPT/HCPCS: 36415; 82728; 83540; 83550; 85025

== ENCOUNTER → 2025-03-27 12:42 | Outpatient (REF) | payer OTHER, SELFPAY ==
[2025-03-27 13:28] LABS: Hematocrit 28.5 % (37.0-47.0); Hemoglobin 9.0 g/dL (12.0-16.0); Mean Corp Hgb Conc. 31.6 g/dL (33.0-37.0); Mean Corpuscular Volume 86.1 fL (81.0-99.0); Platelet Count 240 10^3/uL (130-400); Red Cell Dist. Width 15.5 % (11.5-14.5)
== END ==
LOC: OIDL 12:42
PROVIDERS: ATTENDING PHYSICIAN Internal Medicine Hematology & Oncology; FAMILY PHYSICIAN Family Medicine
DX: D50.9 Iron deficiency anemia, unspecified (principal); D50.0 Iron deficiency anemia secondary to blood loss (chronic); D46.9 Myelodysplastic syndrome, unspecified
CPT/HCPCS: 36415; 85025

== ENCOUNTER 2025-04-07 14:17 | Inpatient (IN) | payer OTHER, SELFPAY ==
[2025-04-07] VITALS (7 sets, daily range): BP systolic 120–144; BP diastolic 53–67; BMI 25.5; BMI 26.4; BMI 24.9
[2025-04-07 10:38] LABS: Hematocrit 30.3 % (37.0-47.0); Hemoglobin 9.4 g/dL (12.0-16.0); Mean Corp Hgb Conc. 31.0 g/dL (33.0-37.0); Mean Corpuscular Volume 88.6 fL (81.0-99.0); Nucleated Red Blood Cells % 0 %; Platelet Count 280 10^3/uL (130-400); Red Cell Dist. Width 17.0 % (11.5-14.5)
[2025-04-07 10:51] LABS: ALT (SGPT) 18 U/L (0-35); AST (SGOT) 22 U/L (14-36); Albumin 3.8 g/dl (3.5-5.0); Alkaline Phosphatase 49 U/L (38-126); Blood Urea Nitrogen 48 mg/dl (7-17); Calcium 8.9 mg/dl (8.4-10.2); Carbon Dioxide 21 mmol/L (22-30); Chloride 108 mmol/L (98-107); Glucose 122 mg/dl (70-99); Magnesium 2.2 mg/dl (1.6-2.3); Potassium 4.3 mmol/L (3.5-5.1); Sodium 136 mmol/L (135-145); Total Protein 6.6 g/dl (6.3-8.2); eGFR 29.94
[2025-04-07 11:13] LABS: Troponin I 0.050 ng/ml
--- NOTE | 2025-04-07 11:45 | EDRN ---
pt brought back to ED room # 11 and placed on monitor, awaiting for provider to see the pt
--- NOTE | 2025-04-07 11:55 | EDRN ---
awaiting for a provider to see the pt
--- NOTE | 2025-04-07 12:21 | EDRN ---
Emanuel SOW currently at the pts bedside
[2025-04-07] MEDS: LASIX 40 MG IV (12:37)
--- NOTE | 2025-04-07 12:52 | ED.GENMED ---
History of Present Illness
<Emanuel Lott PA-C - Last Filed: 04/07/25 13:41>
General
Chief Complaint: Breathing Problem
Source: patient and family
Time Seen by Provider: 04/07/25 12:17
History of Present Illness
History of Present Illness:
79-year-old female with past medical history of atrial fibrillation, hypertension, hyperlipidemia, cle-[id number] diabetes presenting to the emergency department for evaluation for 2 separate concerns, first concern is some worsening
shortness of breath, generalized fatigue, exertional dyspnea and lower extremity edema over the last 24 hours, today worse. Patient endorses an associated cough, feels as if there is sputum for her to cough up but she is unable to do so. Denies
any fevers, chills, rigors, chest pain, diaphoresis, orthopnea. Patient reports a history of CHF but is not on any diuretics. She follows with service center supervisor, Dr. Phuc Marroquin. She is on anticoagulation for a history of atrial fibrillation and
reports good compliance with this. Patient has secondary concern of accidentally poking herself in the right eye with a pillow 3 or 4 days ago and since that time has had some mild erythema and discharge. No visual disturbances.
Past History
<Emanuel Lott PA-C - Last Filed: 04/07/25 13:41>
Past History
ED Past Medical History: Arrthythmia (Atrial fibrillation), HTN, Hypercholesterolemia, NIDDM and Hypothyroidism
ED Past Surgical History: and Other (Parathyroid surgery)
Social History
Tobacco: Former smoker
Alcohol: None
Drug: None
Personal:
Living: alone
Review of Systems
<Emanuel Lott PA-C - Last Filed: 04/07/25 13:41>
Review of Systems
All Other Systems: ROS reviewed and negative except as documented in HPI and ROS
Phy Exam
<Emanuel Lott PA-C - Last Filed: 04/07/25 13:41>
Physical Exam
Physical Exam:
GENERAL: Alert , in no apparent distress
HEAD: Normocephalic atraumatic
EYE: conjunctiva clear
NECK: Supple, no significant adenopathy.
ENT: o/p clr, mmm.
CARDIAC: Regular rate and rhythm, Faint systolic murmur left sternal border
LUNGS: Bibasilar rails, no acute respiratory distress, speaking full sentences
NEUROLOGICAL: Alert and oriented
SKIN: Warm and dry, skin intact.
MUSCULOSKELETAL: well perfused. 1+ edema to the mid lower legs bilaterally
PSYCH: Normal and appropriate interaction.
Scores
<Emanuel Lott PA-C - Last Filed: 04/07/25 13:41>
Heart Failure Risk
Heart Failure Risk Score: Yes
History of Stroke or TIA: No
History of intubation for respiratory distress: No
Heart rate on ED arrival >/= 110: No
SaO2 <90% on arrival on room air: No
HR >/=110 during 3min walk test (or too ill to perform test): Yes
ECG has acute ischemic changes: No
Urea >/=12mmol/L (BUN 33.6mg/dL): Yes
Serum CO2>/=35mmol/L: No
Troponin I or T elevated to IA Level (0.4mg/dL): No
NT-proBNP >/=5,000ng/L (5,000pg/ml): Yes
HF Risk Score: 4
Admission Status: HIGH RISK 26.1% Consider SNF treatment or admission to hospital
Heart Score for Chest Pain Patients
STEMI patient?: Not applicable
Withdrawal Assessment of Alcohol
Withdrawal Assessment Completed?: Not applicable
<Harshal Hobbs DO - Last Filed: 04/07/25 13:43>
Heart Failure Risk
HF Risk Score: 4
Admission Status: HIGH RISK 26.1% Consider SNF treatment or admission to hospital
Course
<Emanuel Lott PA-C - Last Filed: 04/07/25 13:41>
Orders/Labs/Results
Orders:
Orders
04/07/25 10:15
Electrocardiogram (*1) Urgent
Reason for Study: Shortness of Breath
04/07/25 10:16
EKG- Treatment ONCE
04/07/25 10:20
Complete Blood Count/With Diff Urgent
Comprehensive Metabolic Panel Urgent
Magnesium Urgent
NT-proBNP Urgent
Troponin I Urgent
04/07/25 12:27
Furosemide [Lasix] 40 mg IV NOW STA
CR Chest - 2 Views Urgent
Comment:
Reason For Exam: SOB, CHF
Abnormal Lab Results
04/07/25
10:20
RBC 3.42 L 10^6/uL
(4.20-5.40)
Hgb 9.4 L g/dL
(12.0-16.0)
Hct 30.3 L %
(37.0-47.0)
MCHC 31.0 L g/dL
(33.0-37.0)
RDW 17.0 H %
(11.5-14.5)
MPV 11.3 H fL
(7.4-10.4)
Absolute Lymphs (auto) 0.6 L 10^3/uL
(1.2-3.4)
Absolute Monos (auto) 0.7 H 10^3/uL
(0.1-0.6)
Neutrophils % 82.3 H %
(42.2-75.2)
Lymphocytes % 7.1 L %
(20.5-51.1)
Chloride 108 H mmol/L
(98-107)
Carbon Dioxide 21 L mmol/L
(22-30)
BUN 48 H mg/dl
(7-17)
Creatinine 1.7 H mg/dL
(0.6-1.0)
Glucose 122 H mg/dl
(70-99)
Troponin I 0.050 H* ng/ml
04/07/25 10:20
04/07/25 10:20
Vital Signs
Initial and Last Documented VS:
Initial Vital Signs
Temp Pulse Resp BP Pulse Ox
97.9 F 71 18 144/67 94
04/07/25 10:13 04/07/25 10:13 04/07/25 10:13 04/07/25 10:13 04/07/25 10:13
Last Documented Vital Signs
Temp Pulse Resp BP Pulse Ox
98.6 F 80 32 128/67 93
04/07/25 12:30 04/07/25 12:45 04/07/25 12:45 04/07/25 12:37 04/07/25 13:00
<Harshal Hobbs, - Last Filed: 04/07/25 13:43>
Orders/Labs/Results
Orders:
Orders
04/07/25 10:15
Electrocardiogram (*1) Urgent
Reason for Study: Shortness of Breath
04/07/25 10:16
EKG- Treatment ONCE
04/07/25 10:20
Complete Blood Count/With Diff Urgent
Comprehensive Metabolic Panel Urgent
Magnesium Urgent
NT-proBNP Urgent
Troponin I Urgent
04/07/25 12:27
Furosemide [Lasix] 40 mg IV NOW STA
CR Chest - 2 Views Urgent
Comment:
Reason For Exam: SOB, CHF
Abnormal Lab Results
04/07/25
10:20
RBC 3.42 L 10^6/uL
(4.20-5.40)
Hgb 9.4 L g/dL
(12.0-16.0)
Hct 30.3 L %
(37.0-47.0)
MCHC 31.0 L g/dL
(33.0-37.0)
RDW 17.0 H %
(11.5-14.5)
MPV 11.3 H fL
(7.4-10.4)
Absolute Lymphs (auto) 0.6 L 10^3/uL
(1.2-3.4)
Absolute Monos (auto) 0.7 H 10^3/uL
(0.1-0.6)
Neutrophils % 82.3 H %
(42.2-75.2)
Lymphocytes % 7.1 L %
(20.5-51.1)
Chloride 108 H mmol/L
(98-107)
Carbon Dioxide 21 L mmol/L
(22-30)
BUN 48 H mg/dl
(7-17)
Creatinine 1.7 H mg/dL
(0.6-1.0)
Glucose 122 H mg/dl
(70-99)
Troponin I 0.050 H* ng/ml
04/07/25 10:20
04/07/25 10:20
Vital Signs
Initial and Last Documented VS:
Initial Vital Signs
Temp Pulse Resp BP Pulse Ox
97.9 F 71 18 144/67 94
04/07/25 10:13 04/07/25 10:13 04/07/25 10:13 04/07/25 10:13 04/07/25 10:13
Last Documented Vital Signs
Temp Pulse Resp BP Pulse Ox
98.6 F 80 32 128/67 93
04/07/25 12:30 04/07/25 12:45 04/07/25 12:45 04/07/25 12:37 04/07/25 13:00
<Emanuel Lott PA-C - Last Filed: 04/07/25 13:41>
MDM/Problems Addressed
Differential Diagnosis Includes:
Volume overload
Valvular Dysfunction
Cardiomyopathy
Pericarditis/Myocarditis
ACS
Pneumonia
Anemia
Renal Dysfunction
MDM/Problems Addressed:
79-year-old female presenting to the ER for evaluation of shortness of breath, lower extremity edema and exertional dyspnea over the last 24 hours. Labs initiated on arrival show a BNP of greater than 27,000, slightly elevated troponin which is
likely related to demand ischemia, slightly worse acute on chronic kidney disease and a stable hemoglobin of 9.4. Patient is on iron infusions but was unable to go to the appointment today due to her after mentioned symptoms. Patient currently not
on any diuretics. Will treat here with IV furosemide. Secondary concern of accidentally being poked in the right eye with a pillow 3 days ago and since that time has had some redness and discharge. I suspect a small corneal abrasion. Will treat
with erythromycin ointment. Given the cardiopulmonary concerns and lab abnormalities we will plan for admission for diuresis with cardiology and consultation.
Chronic conditions affecting care: Other (Congestive heart failure)
Acute Exacerbation and/or Progression of Chronic Illness: Other (Congestive heart failure)
<Emanuel Lott PA-C - Last Filed: 04/07/25 13:41>
*Radiology
Radiology exam reviewed: preliminary read by ED provider (Bilateral effusions and interstitial edema)
*Pulse Oximetry
SaO2: 93
Oxygen Mode of Delivery: Room air
Patient hypoxic: no
*EKG
Heart Rate: 72
Rate: normal
Rhythm: sinus
[place]: normal axis
Ischemia: other (ST changes V6)
*Rework Machine Operator Interpretation
Rate: normal
Heart Rate: 76
Rhythm: sinus
*Critical Care Note
Total Time (30-74mins, 75-104mins- exclusive of procedures): Not Applicable
<Emanuel Lott PA-C - Last Filed: 04/07/25 13:41>
Patient Management
Discussion with other providers: Hospitalist
Escalation/DeEscalation of care consider admission/obs:
Chest x-ray shows bilateral effusions. BNP greater than 27,000, troponin slightly elevated at 0.050 which I suspect is related to demand ischemia. Will continue IV diuresis. Hospitalist team notified and accepts for continued evaluation and
treatment with plan for cardiology to see the patient in consultation.
ED Attending Note
<Emanuel Lott PA-C - Last Filed: 04/07/25 13:41>
-
Portions of this chart may have been created with voice recognition software.� Occasional wrong word or��sound alike� substitutions may have occurred due to the inherent limitations of voice recognition software.
<Harshal Hobbs DO - Last Filed: 04/07/25 13:43>
ED Attending Note
Patient seen and examined by attending physician: Yes
I performed the substantive portion of visit, reviewed & personally made and approve the management plan that is documented in note by myself or VINCENT.: Yes
I performed a history and physical exam of patient and discussed management with resident, I reviewed resident's note and agree with documented findings and plan of care.: Yes
ED Attending Note:
79-year-old female presents to the ER for evaluation of shortness of breath dyspnea on exertion and worsening peripheral edema. She reports that she does have a prior history of congestive heart failure but is not on any long-term diuretics. She
denies any recent change in her diet but she did eat out at a restaurant last night. Vital signs reviewed, patient is awake, alert, appears no acute distress, conjunctiva pale, mucous membranes moist, heart regular rate and rhythm no murmurs or
ectopy, diminished air movement bilateral bases lungs otherwise clear to auscultation, 2+ DP pulses present symmetric bilateral feet, 2+ edema present to bilateral lower extremities to the knee, GCS is 15. Patient was given IV Lasix by physician
school bus driver/teacher assistant. We reviewed all test results. I discussed with patient and daughter present at bedside benefit of admission for diuresis and further care. They agree with plan and have no questions at the current time.
Discharge Plan
Departure
Patient Disposition: Admit
Date of Disposition: 04/07/25
Time of Disposition: 13:35
Presentation/result/management discussed w/ accepting MD/DO: Hospitalist
Discharge Problem:
CHF (congestive heart failure), ANTHONY (acute kidney injury), Anemia
Prescriptions:
No Action
metformin 500 mg tablet
500 mg PO QPM
diltiazem HCl 300 mg capsule,extended release 24hr
300 mg PO HS
fenofibrate nanocrystallized 145 mg tablet
145 mg PO DAILY
Jardiance 10 mg tablet
10 mg PO DAILY
ferrous sulfate [iron] 325 mg (65 mg iron) Tablet
325 mg PO DAILY
metoprolol tartrate 50 mg Tablet
25 mg PO QPM
hydralazine 50 mg Tablet
50 mg PO TID
Eliquis 5 mg Tablet
5 mg PO BID
cyanocobalamin (vitamin B-12) 1,000 mcg tablet
1,000 mcg PO DAILY
metoprolol tartrate 50 mg tablet
50 mg PO DAILY
rosuvastatin [Crestor] 10 mg Tablet
10 mg PO QPM
docusate sodium [Colace] 100 mg capsule
100 mg PO BID
Referrals:
Dion Bates DO [Family Provider, Family Practice]
Interventions
Interventions:
*Risk Screen - Suicide Last Done: 04/07/25 12:30
*General Assessment Last Done: 04/07/25 12:30
*Neglect/Abuse Screening Last Done: 04/07/25 12:30
*ED- Fall Risk Assessment Last Done: 04/07/25 12:30
*ED COVID-19 Vaccine History Last Done: 04/07/25 12:30
*ED Influenza Vaccine History Last Done: 04/07/25 12:30
ED- Cardiac Assessment Last Done: 04/07/25 12:30
ED- Pulmonary Assessment Last Done: 04/07/25 12:30
Discharge Date and Time
Print Language: MARTINIQUAIS
--- NOTE | 2025-04-07 13:45 | EDRN ---
hospitalist currently at the pts bedside
--- NOTE | 2025-04-07 13:58 | HPS.HSE ---
Family Physician
-
Family Physician: Dion Btaes
Chief Complaint
-
shortness of breath
History of Present Illness
79-year-old female past medical history of hiatal hernia, gastric polyps, paroxysmal atrial fibrillation, CHF, myelodysplastic syndrome, hypertension, hyperlipidemia, type 2 diabetes, CKD 3, presenting for worsening shortness of breath, generalized
fatigue and exertional dyspnea and lower extremity edema over the past 24 hours. She has cough and feels that there is sputum unable to cough it up. Denies any fevers or chills, sweats, chest pain or sweating. She has a history of CHF but is not
on any diuretics. Unsure if she has gained any weight. She sees Dr. Marroquin.
She accidentally poked herself in the right eye with a pillow 3 to 4 days ago and has since had some mild erythema and yellow discharge from the right eye. Denies any vision loss.
She denies smoking or alcohol use.
Medical History
Past Medical History
Past Medical History: Reports Other (hiatal hernia, gastric polyps, paroxysmal atrial fibrillation, CHF, myelodysplastic syndrome, hypertension, hyperlipidemia, type 2 diabetes, CKD 3,)
Past Surgical History: Reports Other ( and Other (Parathyroid surgery))
Social History
Tobacco: Non-smoker
Alcohol: None
Drug: None
Family History
Family History: Not pertinent
Allergies / Home Medications
Allergies reflects when Allergies were last updated in [employer].
Home Medications with original date entered in [employer]
Allergy/Medication List:
Allergies
Allergy/AdvReac Type Severity Reaction Status Date / Time
No Known Allergies Allergy Verified 07/20/23 15:29
Home Medications
diltiazem HCl 300 mg capsule,extended release 24 hr 300 mg PO HS Blood pressure 05/06/22
empagliflozin 10 mg tablet (Jardiance) 10 mg PO DAILY Diabetes 05/06/22
fenofibrate nanocrystallized 145 mg tablet 145 mg PO DAILY High cholesterol 12/02/22
metformin 500 mg tablet 500 mg PO QPM Diabetes 05/06/22
apixaban 5 mg tablet (Eliquis) 5 mg PO BID Blood Clot Prevention/Tx 07/20/23
cyanocobalamin (vitamin B-12) 1,000 mcg tablet 1,000 mcg PO DAILY Supplement 07/20/23
ferrous sulfate 325 mg (65 mg iron) tablet (iron) 325 mg PO DAILY Supplement 07/20/23
hydralazine 50 mg tablet 50 mg PO TID Blood Pressure 07/20/23
metoprolol tartrate 50 mg tablet 25 mg PO QPM Blood Pressure 07/20/23
metoprolol tartrate 50 mg tablet 50 mg PO DAILY Blood Pressure 07/20/23
docusate sodium 100 mg capsule (Colace) 100 mg PO BID Constipation 04/07/25
rosuvastatin 10 mg tablet (Crestor) 10 mg PO QPM High Cholesterol 04/07/25
Review of Systems
-
History Source: Patient
A 12 point ROS was completed and negative except as noted: Yes
Constitutional: Reports No Symptoms
EENT: Reports No Symptoms
Respiratory: Reports See HPI
Cardiac: Reports No Symptoms
Abdomen/GI: Reports No Symptoms
: Reports No Symptoms
Musculoskeletal: Reports No Symptoms
Skin: Reports No Symptoms
Neurological: Reports No Symptoms
Endocrine: Reports No Symptoms
Hematologic/Lymphatic: Reports No Symptoms
Psych: Reports No Symptoms
Physical Exam
Vital Signs
Vital Signs
Temp Pulse Resp BP Pulse Ox
98.6 F 80 32 128/67 93
04/07/25 12:30 04/07/25 12:45 04/07/25 12:45 04/07/25 12:37 04/07/25 13:00
Physical Exam
General: Well Developed, Well Nourished and No Apparent Distress
HEENT: NormoCephalic, Moist mucous membranes and Atraumatic
Respiratory: Clear
Cardiac: S1/S2, Regular Rhythm and Peripheral Edema; No Murmur or Rub
GI: Soft, Non Tender, Non Distended and Normal Bowel Sounds; No Organomegaly
Rectal: Deferred by Provider
Musculoskeletal: No Clubbing, No Cyanosis and No Edema
Skin: No Rash
Neuro: Nonfocal/grossly intact
Laboratory Results
-
04/07/25 10:20
04/07/25 10:20
Laboratory Results
Total Bilirubin 0.5 mg/dl (0.2-1.3) 04/07/25 10:20
AST 22 U/L (14-36) 04/07/25 10:20
ALT 18 U/L (0-35) 04/07/25 10:20
Alkaline Phosphatase 49 U/L (38-126) 04/07/25 10:20
Troponin I 0.050 ng/ml H* 04/07/25 10:20
Data Reviewed
-
Lab Data: Labs Reviewed by me
Old Records: Reviewed
Impression/Plan
-
IMPRESSION:
PLAN:
# Acute on chronic CHF exacerbation
-Chest x-ray shows small loculated right pleural effusion and trace left pleural effusion with adjacent airspace opacities favored to represent atelectasis, mild rightward deviation of the upper trachea which may be secondary to enlarged thyroid
-Cardiac BNP 27,000
- Check I's and O's, daily weight
- 40 IV Lasix daily
- Cardiology consulted
# Nonischemic myocardial injury secondary to CHF
-No chest pain
- Troponin 0.05
-Trend troponins
- EKG shows normal sinus rhythm, LVH, ST elevation in V2, nonspecific T wave inversions
# Slight ANTHONY on CKD 3 versus CKD
- Creatinine 1.7 from baseline of around 1.3
- Monitor with diuresis
# Right eye conjunctivitis from pillow injury
- The
Paroxysmal atrial fibrillation
- Continue Eliquis
- Continue Cardizem
- Continue metoprolol
Myelodysplastic syndrome
Chronic anemia
- Continue ferrous sulfate
- Hemoglobin stable 9.4
- Has been receiving iron infusion every other day today would have been the fifth and final session
Essential hypertension
- Continue hydralazine
Hiatal hernia
Gastric polyps
Hyperlipidemia
- Continue statin, fenofibrate
Type 2 diabetes
- hold metformin
- Insulin sliding scale
- Continue Jardiance
Full code
DVT prophylaxis�Eliquis
cardiac diet
--- NOTE | 2025-04-07 15:13 | CM ---
Chart reviewed. Met with patient, dtr Kenan and johnna Vergara 21 yo at ED bedside
She lives in dtr Kenan's house with dtr. 2 Story home [address] and 1st floor set up
Per dtr Kenan patient would stay with her for now [address] [place]
Independent with ADLs, ambulation. Drives
no DME
PCP Dr. Dion Bates
RX plan yes
Pharmacy [facility] in [place]
no hx of VN nor SNF
Dtr and pt NOT interested in setting up VN at the time of DC
DCP back to dtr's home , dtr can provide transportation
CM to follow up for any dcp needs
[2025-04-07] MEDS: LOPRESSOR 25 MG PO (15:37)
[2025-04-07] MEDS: APRESOLINE 50 MG PO ×2 (15:37→21:01)
--- NOTE | 2025-04-07 16:06 | CON.CAR ---
Consultation
Consultation Request
Date/Time Consultation Requested: 04/07/2025, 1415
Date/Time Consultation Performed: 04/07/2025, 1600
Requesting Provider: Dr. Granados
Performing Provider: INGRID Fernandez for Dr. Marroquin
Reason for Consultation: Heart failure exacerbation
Medical History
-
Chief Complaint: Shortness of breath and lower extremity edema
History of Present Illness:
79-year-old female with past medical history hypertension, hyperlipidemia, paroxysmal atrial fibrillation, type 2 diabetes, chronic kidney disease stage III, heart failure, myelo dysplastic syndrome followed by Dr. Batres who presents to ED with
2-week history of lower extremity edema and 1 to 2-day history of dyspnea on exertion.
No chest pain, palpitations, lightheadedness, syncope. No known weight gain. Denies PND, orthopnea
She has been in her usual state of health except recently started iron infusions last week and since then has felt more fatigued.
ED workup: proBNP greater than 27,000
Troponin 0.050�0.053
Hemoglobin 9.4, WBC 7.7, platelet 280, NA 136, K4.3, BUN/creatinine 48/1.7, magnesium 2.2, LFTs within normal limits
Chest x-ray: Small loculated right-sided pleural effusion, trace left pleural effusion, bilateral airspace opacities likely atelectasis
EKG: Normal sinus rhythm anterior lateral ST-T wave abnormality
Past medical history:
Hypertension
Hyperlipidemia
Paroxysmal A-fib
Type 2 diabetes
Chronic kidney disease stage III
Heart failure
Myelodysplastic syndrome
Past Medical History
Past Medical History: Other (As above)
Past Surgical History: Other (Parathyroid removed, kidney procedure, )
Social History
Tobacco: Former Smoker
Alcohol: None
Drug: None
Family History
Family History: Reviewed & Not Pertinent
Allergies / Home Medications
Allergy/AdvReac Type Severity Reaction Status Date / Time
No Known Allergies Allergy Verified 07/20/23 15:29
�Medication �Instructions �Recorded �Confirmed �Type
diltiazem HCl 300 mg 300 mg PO HS Blood pressure 05/06/22 04/07/25 History
capsule,extended release 24 hr
empagliflozin 10 mg tablet 10 mg PO DAILY Diabetes 05/06/22 04/07/25 History
(Jardiance)
fenofibrate nanocrystallized 145 145 mg PO DAILY High cholesterol 05/06/22 04/07/25 History
mg tablet
metformin 500 mg tablet 500 mg PO QPM Diabetes 05/06/22 04/07/25 History
apixaban 5 mg tablet (Eliquis) 5 mg PO BID Blood Clot 07/20/23 04/07/25 History
Prevention/Tx
cyanocobalamin (vitamin B-12) 1,000 mcg PO DAILY Supplement 07/20/23 04/07/25 History
1,000 mcg tablet
ferrous sulfate 325 mg (65 mg 325 mg PO DAILY Supplement 07/20/23 04/07/25 History
iron) tablet (iron)
hydralazine 50 mg tablet 50 mg PO TID Blood Pressure 07/20/23 04/07/25 History
metoprolol tartrate 50 mg tablet 25 mg PO QPM Blood Pressure 07/20/23 04/07/25 History
metoprolol tartrate 50 mg tablet 50 mg PO DAILY Blood Pressure 07/20/23 04/07/25 History
docusate sodium 100 mg capsule 100 mg PO BID Constipation 04/07/25 04/07/25 History
(Colace)
rosuvastatin 10 mg tablet (Crestor) 10 mg PO QPM High Cholesterol 04/07/25 04/07/25 History
Review of Systems
-
History Source: Patient
All other systems: Negative unless noted
Physical Exam
Vital Signs
Temp Pulse Resp BP Pulse Ox
98.6 F 80 32 128/67 93
04/07/25 12:30 04/07/25 12:45 04/07/25 12:45 04/07/25 12:37 04/07/25 13:00
Lab Results
04/07/25 10:20
04/07/25 10:20
Troponin I 0.050 ng/ml H* 04/07/25 10:20
Vcf-N-Ltuqzobmvhy Pept > 19637 pg/ml 04/07/25 10:20
GEN: No distress, awake, Ox3
HEENT: supple, anicteric, mmm
LUNGS: Rales bilateral bases
CV: Reg, S1/S2, no murmur
ABD: soft, BS+, NT/ND
EXT: Trace bilateral lower extremity edema to shins
NEURO: Gross non-focal
SKIN: No rash
Impression / Plan
-
PCP: Dion Bates
Primary damage appraiser: Dr. Marroquin
Impression:
Shortness of breath
Lower extremity edema
Acute heart failure
Elevated troponin
Hypertension
Paroxysmal atrial fibrillation
MDS
Hyperlipidemia
chronic kidney disease
Diabetes mellitus
Plan: 79-year-old female with history of hypertension, hyperlipidemia, paroxysmal A-fib, diabetes, chronic kidney disease, and myelodysplastic syndrome presents with 2-week history of lower extremity edema and 2-day history of dyspnea on exertion.
Found to be in acute heart failure with proBNP greater than 27,000. Also with troponin elevation without chest pain. Appears mildly volume overloaded on exam.
Acute on chronic heart failure:
-IV Lasix
- closely monitor renal function in setting of history of chronic kidney disease. Creatinine 1.7 on admission. Baseline creatinine appears to be 1.3-1.4.
-Check echo
-Daily weights and I's and O
-Consider ischemic evaluation for heart failure workup
Paroxysmal A-fib
-In sinus rhythm on EKG, no symptoms suggestive of recurrent A-fib
-Continue outpatient Eliquis, Cardizem, and metoprolol
Elevated troponin
�Trend to peak
- No chest pain
- EKG with new anterior lateral ST-T wave abnormality
- Repeat EKG in a.m.
--- NOTE | 2025-04-07 16:09 | W.PN.UPDATE ---
Update Note
Progress Note Update
79-year-old woman with mild CAD CKD and remote PAF, MDS admitted now with acute HFpEF, mild ANTHONY and detectable troponin
PMH: PAF in 2012 in the setting of urosepsis, hypertension, hyperlipidemia, anemia, type 2 diabetes, CKD 3a and myelodysplasia recently diagnosed
PSH: Parathyroidectomy, , renal calculi
Medications: Reviewed
Rest of history as per Miriam Magallanes,
128/67, pulse 80, respiratory rate 32, mild distress, head neck exam unremarkable, diminished breath sounds in bases, MR murmur, JVD probably 12, abdomen benign 1-2+ edema pulses intact
Chest x-ray effusions, mild vascular congestion
Hemoglobin 9.4, BUN and creatinine are 48 and 1.7 creatinine was 1.3, proBNP greater than 27,000, troponin 0.05
ECG: Sinus rhythm, consider anterolateral ischemia, LVH, ECG changes new since November 2024
Impression:
Acute/subacute heart failure, suspect preserved EF
Remote PAF, currently in sinus rhythm
Hypertension
Hypercholesterolemia type 2 diabetes
ANTHONY on CKD 3a
Status post parathyroidectomy
MDS
Plan:
She presents with acute/subacute heart failure. We do not have a recent assessment of her EF. On exam, I suspect she has moderate or greater mitral regurgitation.
In addition, she has EKG changes that are new compared to November, with a detectable troponin. She will require an ischemic evaluation, cardiac catheterization or nuclear perfusion imaging based upon her clinical course.
She has been started on apixaban, we may need to hold if we determined she should undergo cardiac catheterization. I have given aspirin x 1 pending decision.
Agree with IV Lasix. She is already on dapagliflozin.
She is on short acting metoprolol will likely transition to metoprolol succinate
Will want to discontinue diltiazem given heart failure.
JOANIE or ARB, spironolactone may be warranted based on EF if CKD and ANTHONY do not preclude. May need to touch base with nephrology.
Await echocardiogram.
Will reassess in AM.
Total time: 80 minutes
[2025-04-07 16:18] LABS: Troponin I 0.053 ng/ml
[2025-04-07] MEDS: CRESTOR 10 MG PO (17:54)
[2025-04-07] MEDS: ERYTHROMYCIN 0.5% OPHTHALMIC OINTMENT OPHTH (20:53)
[2025-04-07] MEDS: CARDIZEM CD 300 MG PO (21:00)
[2025-04-07] MEDS: COLACE 100 MG PO (21:01)
[2025-04-07] MEDS: ELIQUIS 5 MG PO (21:01)
[2025-04-07 21:40] LABS: Troponin I 0.050 ng/ml
[2025-04-07] MEDS: ERYTHROMYCIN 0.5% OPHTHALMIC OINTMENT 1 APPLIC OPHTH (21:46)
[2025-04-07 21:49] LABS: Glucose - Point of Care 173 mg/dl (70-99)
[2025-04-08 03:57] LABS: Troponin I 0.039 ng/ml
[2025-04-08 03:59] VITALS: BP 123/46
[2025-04-08 06:00] VITALS: BMI 24.9
[2025-04-08 07:05] VITALS: BP 128/55
[2025-04-08 08:18] LABS: Glucose - Point of Care 121 mg/dl (70-99)
[2025-04-08] MEDS: ELIQUIS PO (09:20)
[2025-04-08] MEDS: ELIQUIS 2.5 MG PO ×2 (09:22→19:53)
[2025-04-08] MEDS: TRICOR 145 MG PO (09:22)
[2025-04-08] MEDS: COLACE 100 MG PO ×2 (09:22→19:53)
[2025-04-08] MEDS: LASIX 40 MG IV (09:22)
[2025-04-08] MEDS: FARXIGA 10 MG PO (09:22)
[2025-04-08] MEDS: APRESOLINE 50 MG PO ×3 (09:22→21:23)
[2025-04-08] MEDS: LOPRESSOR 50 MG PO (09:23)
[2025-04-08] MEDS: VITAMIN B-12 1000 MCG PO (09:23)
[2025-04-08] MEDS: ERYTHROMYCIN 0.5% OPHTHALMIC OINTMENT 1 APPLIC OPHTH ×4 (09:23→21:23)
[2025-04-08 10:28] LABS: ALT (SGPT) 16 U/L (0-35); AST (SGOT) 21 U/L (14-36); Albumin 3.8 g/dl (3.5-5.0); Alkaline Phosphatase 48 U/L (38-126); Blood Urea Nitrogen 51 mg/dl (7-17); Calcium 9.2 mg/dl (8.4-10.2); Carbon Dioxide 24 mmol/L (22-30); Chloride 104 mmol/L (98-107); Estimated Creatinine Clearance 24 ml/min; Glucose 214 mg/dl (70-99); Potassium 4.5 mmol/L (3.5-5.1); Sodium 137 mmol/L (135-145); Total Protein 6.5 g/dl (6.3-8.2); eGFR 29.94
[2025-04-08 10:29] LABS: Hematocrit 31.4 % (37.0-47.0); Hemoglobin 9.6 g/dL (12.0-16.0); Mean Corp Hgb Conc. 30.6 g/dL (33.0-37.0); Mean Corpuscular Volume 87.0 fL (81.0-99.0); Nucleated Red Blood Cells % 0 %; Platelet Count 297 10^3/uL (130-400); Red Cell Dist. Width 16.8 % (11.5-14.5)
[2025-04-08 10:37] LABS: Troponin I 0.033 ng/ml
[2025-04-08 10:38] LABS: Glycohemoglobin (HgbA1c) 5.7 % (4.0-5.9)
[2025-04-08 11:31] VITALS: BP 130/58
[2025-04-08 12:05] LABS: Glucose - Point of Care 132 mg/dl (70-99)
--- NOTE | 2025-04-08 12:18 | W.PN.HOSP.TC ---
Today's Communication/Plan
-
.
Assessment / Plan
Assessment / Plan
Geri Tong is a 79F w/ PMHx of paroxysmal atrial fibrillation, chronic heart failure (unsure pEF vs rEF), myelodysplastic syndrome, HTN, HLD, type 2 diabetes mellitus, and CKD 3 who presented to the emergency department with shortness of breath,
dyspnea on exertion, and lower extremity edema x 24 hours. In the emergency department patient exhibited bibasilar rales with 1+ lower extremity edema telemetry with labs showing a BNP level of greater than 27,000 as well as acute kidney injury
with a creatinine of 1.7 (baseline approximately 1.3-1.4.) the patient was admitted for IV Lasix and cardiopulmonary evaluation.
1. Acute on Chronic Heart Failure Exacerbation
- CXR (04/07): Small loculated right pleural effusion, trace left pleural effusion
- proBNP > 27,000
- Check I's and O's, daily weight
- 40 IV Lasix daily
- Close monitoring of Cr; admitted with 1.7, baseline appears to be 1.3-1.4
- ECHO
2. Nonischemic myocardial injury secondary to CHF
- Denies chest pain
- Troponin 0.05 --> 0.03, trended to peak
- EKG shows normal sinus rhythm, LVH, ST elevation in V2, nonspecific T wave inversions
- Ischemic evaluation at discretion of cardiology
3. ANTHONY on CKD 3 versus CKD
- Creatinine 1.7 from baseline of around 1.3
- Monitor with diuresis
- Daliy BMPs
4. Right eye conjunctivitis from pillow injury
- No vision difficulty, does not bother patient
5. Paroxysmal atrial fibrillation
- Eliquis renally dosed (patient >80 y/o, Cr 1.7)
- Continue Cardizem
- Continue metoprolol
6. Myelodysplastic syndrome
- Continue ferrous sulfate
- Hemoglobin stable 9.4
- Has been receiving iron infusion every other day today would have been the fifth and final session
7. Essential hypertension
- Continue hydralazine/metoprolol
8. History of Hiatal hernia
9. History of Gastric polyps
10. Hyperlipidemia
- Continue statin, fenofibrate
11. Type 2 diabetes
- hold metformin
- Insulin sliding scale
- Continue Jardiance
12. Tracehal Deviation on CXR
- Possible thyroid enlargement
- Outpatient follow up
CODE: Full
DVT PPx: Eliquis
Diet: Cardiac
Anticipated Discharge: 24 - 48 hours
Subjective/Interval History
-
Date of Service: April 08, 2025
Patient feeling better today from a respiratory perspective. Otherwise denies any acute complaints.
With regard to eye issue, says that she has no trouble seeing, and that it does not bother her.
Denies CP, palpitations, dizziness, orthopnea.
Objective Data
-
Labs:
Laboratory Results
04/08/25
09:45
WBC 9.8
Hgb 9.6 L
Hct 31.4 L
Plt Count 297
Sodium 137
Potassium 4.5
Chloride 104
Carbon Dioxide 24
BUN 51 H
Creatinine 1.7 H
Glucose 214 H
Calcium 9.2
Total Bilirubin 0.4
AST 21
ALT 16
Alkaline Phosphatase 48
Vital Signs:
Vital Signs
Temp Pulse Resp BP Pulse Ox
98.3 F 77 16 130/66 92
04/08/25 07:05 04/08/25 09:22 04/08/25 07:05 04/08/25 09:22 04/08/25 09:50
Review of Systems
-
History Source: Patient
All other systems: Reviewed and negative
Physical Exam
-
General: No Apparent Distress and Comfortable
HEENT: Normocephalic, Atraumatic and Moist Mucous Membranes
Respiratory: Rales and Non Labored Respirations
Cardiac: Regular Rhythm and S1/S2; Negative Murmur
GI: Soft
Musculoskeletal: No Clubbing, No Cyanosis, Edema, Right Lower Extrem (trace to ankles) and Edema, Left Lower Extrem (trace to ankles)
Skin: Warm
Neuro: Awake, Alert and Oriented
Psych: Calm
Data Reviewed
-
Diagnostic Radiology: Image personally visualized and interpreted, Report Reviewed by me and Discussed with Patient
Labs: Labs Reviewed by me and Discussed with Patient
[2025-04-08 15:45] VITALS: BP 121/54
[2025-04-08 16:44] LABS: Glucose - Point of Care 130 mg/dl (70-99)
[2025-04-08] MEDS: LOPRESSOR 25 MG PO (17:15)
[2025-04-08] MEDS: CRESTOR 10 MG PO (17:15)
--- NOTE | 2025-04-08 17:19 | W.PN.CARDCBS ---
Today's Communication / Plan
-
Acute HFrEF with moderate to severe mitral regurgitation
Continue IV Lasix for now
Stop short acting metoprolol and diltiazem
Start metoprolol ER 50 mg twice daily
Add nitrates to hydralazine, consider JOANIE/ARB
No spironolactone
Continue Jardiance/Farxiga
Eventual stress test or cath based on renal function
Impression / Plan
-
PCP: Dion Bates
Primary gun repair clerk: Dr. Marroquin
Impression:
Acute HFrEF
Moderate to severe mitral regurgitation
Elevated troponin
Hypertension
Paroxysmal atrial fibrillation
MDS
Hyperlipidemia
chronic kidney disease
Diabetes mellitus
Echo 04/08/2025: Global hypokinesis, EF 38%, stage II diastolic function, normal RV, moderate to severe mitral regurgitation, pulmonary artery systolic pressure 39 mmHg, severely dilated left atrium, mild MAC
Plan:
Her echo shows global hypokinesis, with moderate to severe mitral regurgitation.
Suspect that LV dysfunction is nonischemic, but will need ischemic evaluation.
At present, with creatinine 1.7 would prefer to avoid cardiac catheterization. Hopefully renal function will return to baseline and cath could be considered. Otherwise, sestamibi study can be performed as outpatient.
She is currently on Farxiga.
She is on both short acting metoprolol and diltiazem. Will stop diltiazem and convert metoprolol to long-acting.
She is on hydralazine, will add nitrates. If renal function improves, consider JOANIE/ARB, possibly Entresto.
Given CKD no spironolactone at present.
Apixaban appropriately dosed for decreased renal function and age. Currently she is in sinus rhythm.
Possibly convert to oral furosemide in a.m.
Progress Note - Roofing Tile Sorter
Subjective
Date of Service: April 08, 2025:
79-year-old woman with mild CAD CKD and remote PAF, MDS admitted now with acute HFpEF, mild ANTHONY and detectable troponin
PMH: PAF in 2011 in the setting of urosepsis, hypertension, hyperlipidemia, anemia, type 2 diabetes, CKD 3a and myelodysplasia recently diagnosed
PSH: Parathyroidectomy, , renal calculi
Current meds: Furosemide 40 mg IV daily, diltiazem CD 300 mg a day, dapagliflozin 10 mg daily, fenofibrate, metoprolol tartrate 50 mg a day a.m. and 20 5 PM, rosuvastatin 10 mg a day, apixaban 2.5 mg twice daily
121/54, pulse 65, respiratory rate 18, weight is 69.9 kg, unchanged from late yesterday, possibly down 4 kg since admission., Head neck exam unremarkable, lungs are relatively clear, edema is improved, MR murmur regular rate and rhythm,
telemetry normal sinus rhythm
Hemoglobin is 9.6, BUN and creatinine are 51 and 1.7,
ECG with LVH and repolarization abnormality
Objective
Labs:
04/08/25 09:45
04/08/25 09:45
Labs
Hgb 9.6 g/dL (12.0-16.0) L 04/08/25 09:45
Hct 31.4 % (37.0-47.0) L 04/08/25 09:45
Plt Count 297 10^3/uL (130-400) 04/08/25 09:45
Sodium 137 mmol/L (135-145) 04/08/25 09:45
Potassium 4.5 mmol/L (3.5-5.1) 04/08/25 09:45
BUN 51 mg/dl (7-17) H 04/08/25 09:45
Creatinine 1.7 mg/dL (0.6-1.0) H 04/08/25 09:45
Glucose 214 mg/dl (70-99) H 04/08/25 09:45
Troponins
04/07/25 04/07/25 04/07/25
10:20 15:28 21:08
Troponin I 0.050 H* 0.053 H* 0.050 H*
04/08/25 04/08/25
02:58 09:45
Troponin I 0.039 H* 0.033
Vital Signs and I&O:
Vital Signs
Temp Pulse Resp BP Pulse Ox
36.8 C 65 18 121/54 94
04/08/25 15:45 04/08/25 17:15 04/08/25 15:45 04/08/25 17:15 04/08/25 15:45
Vital Signs
Temp Pulse Resp BP Pulse Ox
36.8 C 65 18 121/54 94
04/08/25 15:45 04/08/25 17:15 04/08/25 15:45 04/08/25 17:15 04/08/25 15:45
Physical Exam
Physical Exam
See above
[2025-04-08 19:44] VITALS: BP 128/62
[2025-04-08] MEDS: CARDIZEM CD 300 MG PO (21:23)
[2025-04-08 21:28] LABS: Glucose - Point of Care 179 mg/dl (70-99)
[2025-04-08 23:03] VITALS: BP 125/63
[2025-04-09 03:57] VITALS: BP 132/64
[2025-04-09 06:00] VITALS: BMI 24.7
[2025-04-09 07:34] LABS: Glucose - Point of Care 106 mg/dl (70-99)
[2025-04-09 07:40] VITALS: BP 131/61
[2025-04-09 08:22] LABS: Hematocrit 30.0 % (37.0-47.0); Hemoglobin 9.1 g/dL (12.0-16.0); Mean Corp Hgb Conc. 30.3 g/dL (33.0-37.0); Mean Corpuscular Volume 88.0 fL (81.0-99.0); Platelet Count 267 10^3/uL (130-400); Red Cell Dist. Width 16.6 % (11.5-14.5)
[2025-04-09] MEDS: LOPRESSOR 50 MG PO (09:15)
[2025-04-09] MEDS: APRESOLINE 50 MG PO ×3 (09:15→21:15)
[2025-04-09] MEDS: TRICOR 145 MG PO (09:15)
[2025-04-09] MEDS: FARXIGA 10 MG PO (09:15)
[2025-04-09] MEDS: VITAMIN B-12 1000 MCG PO (09:15)
[2025-04-09] MEDS: COLACE 100 MG PO ×2 (09:15→20:49)
[2025-04-09] MEDS: ELIQUIS 2.5 MG PO ×2 (09:16→20:49)
[2025-04-09] MEDS: ERYTHROMYCIN 0.5% OPHTHALMIC OINTMENT 1 APPLIC OPHTH ×4 (09:16→21:15)
[2025-04-09] MEDS: LASIX 40 MG IV (09:16)
[2025-04-09] MEDS: FLUSH (NSS) 1 FLUSH IV (09:16)
[2025-04-09 09:36] LABS: Blood Urea Nitrogen 52 mg/dl (7-17); Calcium 9.0 mg/dl (8.4-10.2); Carbon Dioxide 25 mmol/L (22-30); Chloride 105 mmol/L (98-107); Estimated Creatinine Clearance 24 ml/min; Glucose 110 mg/dl (70-99); Potassium 4.2 mmol/L (3.5-5.1); Sodium 136 mmol/L (135-145); eGFR 29.94
--- NOTE | 2025-04-09 09:51 | W.PN.CARDCBS ---
Today's Communication / Plan
-
Clinically improved. Creatinine remains stable at 1.7. Will switch Lasix to 40 mg p.o. daily. Stop diltiazem and start Toprol XL 100 mg p.o. twice daily.
Continue Farxiga and hydralazine. Will add Imdur 30 mg daily.
Suspect will be stable for discharge over next 24 hours.
With low EF will need ischemic evaluation as outpatient. Hopefully creatinine improves and could consider JOANIE/ARB/Entresto and cardiac cath.
Impression / Plan
-
PCP: Dion Bates
Primary straw hat brim cutter operator: Dr. Marroquin
Impression:
Acute HFrEF
Moderate to severe mitral regurgitation
Elevated troponin
Hypertension
Paroxysmal atrial fibrillation
MDS
Hyperlipidemia
chronic kidney disease
Diabetes mellitus
Echo 04/08/2025: Global hypokinesis, EF 38%, stage II diastolic function, normal RV, moderate to severe mitral regurgitation, pulmonary artery systolic pressure 39 mmHg, severely dilated left atrium, mild MAC
Plan:
Her echo shows global hypokinesis, with moderate to severe mitral regurgitation.
Suspect that LV dysfunction is nonischemic, but will need ischemic evaluation.
Creatinine is overall stable at 1.7. I would prefer cardiac cath but with creatinine of 1.7 would defer as outpatient.
She is currently on Farxiga.
Will stop diltiazem and start metoprolol XL 100 mg p.o. twice daily.
She is on hydralazine, will add nitrates. If renal function improves, consider JOANIE/ARB, possibly Entresto.
Given CKD no spironolactone at present.
Apixaban appropriately dosed for decreased renal function and age. Currently she is in sinus rhythm.
Will lconvert Lasix to 40 mg p.o. daily in AM.
Progress Note - Commercial Driver
Subjective
Date of Service: April 09, 2025
Continues to slowly improve. Breathing is better
Objective
Labs:
11/05/25 08:13
04/09/25 08:13
Labs
Hgb 9.1 g/dL (12.0-16.0) L 04/09/25 08:13
Hct 30.0 % (37.0-47.0) L 04/09/25 08:13
Plt Count 267 10^3/uL (130-400) 04/09/25 08:13
Sodium 136 mmol/L (135-145) 04/09/25 08:13
Potassium 4.2 mmol/L (3.5-5.1) 04/09/25 08:13
BUN 52 mg/dl (7-17) H 04/09/25 08:13
Creatinine 1.7 mg/dL (0.6-1.0) H 04/09/25 08:13
Glucose 110 mg/dl (70-99) H 04/09/25 08:13
Troponins
04/07/25 04/07/25 04/07/25
10:20 15:28 21:08
Troponin I 0.050 H* 0.053 H* 0.050 H*
04/08/25 04/08/25
02:58 09:45
Troponin I 0.039 H* 0.033
Vital Signs and I&O:
Vital Signs
Temp Pulse Resp BP Pulse Ox
97.9 F 79 18 131/61 93
04/09/25 03:57 04/09/25 09:16 04/09/25 03:57 04/09/25 09:16 04/09/25 09:10
Vital Signs
Temp Pulse Resp BP Pulse Ox
97.9 F 79 18 131/61 93
04/09/25 03:57 04/09/25 09:16 04/09/25 03:57 04/09/25 09:16 04/09/25 09:10
Intake & Output
04/07/25 04/08/25 04/09/25 04/10/25
06:59 06:59 06:59 06:59
Intake Total 720 / 720
Balance 720 / 720
Physical Exam
Physical Exam
GEN: No distress, awake, Ox3
HEENT: supple, anicteric, mmm
LUNGS: CTA, no wheezes/rales
CV: Reg, S1/S2, 1/6 syst LSB, S3+
ABD: soft, BS+, NT/ND
EXT: No edema
NEURO: Gross non-focal
SKIN: No rash
[2025-04-09 11:11] VITALS: BMI 24.7
--- NOTE | 2025-04-09 11:15 | W.PN.HOSP.TC ---
Today's Communication/Plan
-
Continue diuresis. Monitor BMP. Medication changes per cardiology. Possible discharge tomorrow.
Assessment / Plan
Assessment / Plan
Geri Tong is a 79F w/ PMHx of paroxysmal atrial fibrillation, chronic heart failure (unsure pEF vs rEF), myelodysplastic syndrome, HTN, HLD, type 2 diabetes mellitus, and CKD 3 who presented to the emergency department with shortness of breath,
dyspnea on exertion, and lower extremity edema x 24 hours. In the emergency department patient exhibited bibasilar rales with 1+ lower extremity edema telemetry with labs showing a BNP level of greater than 27,000 as well as acute kidney injury
with a creatinine of 1.7 (baseline approximately 1.3-1.4.) the patient was admitted for IV Lasix and cardiopulmonary evaluation.
1. Acute on Chronic Heart Failure Exacerbation
- CXR (04/07): Small loculated right pleural effusion, trace left pleural effusion
- proBNP > 27,000 on admission
- Check I's and O's, daily weight
- 04/09: Weight down 0.5 kg
- Continue diuresis; Lasix transitioned to p.o.
- Close monitoring of Cr; admitted with 1.7, baseline appears to be 1.3-1.4
- ECHO (04/08): Moderately reduced EF of 35%
2. Nonischemic myocardial injury secondary to CHF
- Denies chest pain
- Troponin 0.05 --> 0.03, trended to peak
- EKG shows normal sinus rhythm, LVH, ST elevation in V2, nonspecific T wave inversions
- Ischemic evaluation in outpatient setting per cardiology
3. ANTHONY on CKD 3 versus CKD
- Creatinine 1.7 from baseline of around 1.3
- Monitor with diuresis
- Daliy BMPs
4. Right eye conjunctivitis from pillow injury
- No vision difficulty, does not bother patient
5. Paroxysmal atrial fibrillation
- Eliquis renally dosed (patient >80 y/o, Cr 1.7)
- Discontinue Cardizem per cardiology recommendations
- Continue metoprolol, increased dose to 100 mg p.o. twice daily
6. Myelodysplastic syndrome
- Continue ferrous sulfate
- Hemoglobin stable 9.4
- Has been receiving iron infusion every other day today would have been the fifth and final session
7. Essential hypertension
- Continue hydralazine/metoprolol
- Imdur added this admission
8. History of Hiatal hernia
9. History of Gastric polyps
10. Hyperlipidemia
- Continue statin, fenofibrate
11. Type 2 diabetes
- hold metformin
- Insulin sliding scale
- Continue Jardiance
12. Tracehal Deviation on CXR
- Possible thyroid enlargement
- Outpatient follow up
CODE: Full
DVT PPx: Eliquis
Diet: Cardiac
Anticipated Discharge: Within 24 hours
Subjective/Interval History
-
Date of Service: April 09, 2025
Patient seen and examined while resting comfortably in bed and eating breakfast.
Patient endorses an interval improvement in symptoms. States her breathing is about 80% better from presentation.
Otherwise no acute complaints today.
Objective Data
-
Labs:
Laboratory Results
04/09/25
08:13
WBC 7.5
Hgb 9.1 L
Hct 30.0 L
Plt Count 267
Sodium 136
Potassium 4.2
Chloride 105
Carbon Dioxide 25
BUN 52 H
Creatinine 1.7 H
Glucose 110 H
Calcium 9.0
Vital Signs:
Vital Signs
Temp Pulse Resp BP Pulse Ox
97.8 F 79 16 131/61 93
04/09/25 07:40 04/09/25 09:16 04/09/25 07:40 04/09/25 09:16 04/09/25 09:10
I&O
04/08/25 04/09/25 04/10/25
06:59 06:59 06:59
Intake Total 720 / 720
Balance 720 / 720
Review of Systems
-
History Source: Patient
All other systems: Reviewed and negative
Physical Exam
-
General: Well Developed, Well Nourished, No Apparent Distress, Comfortable and Conversant
HEENT: Normocephalic and Other (Right eye conjunctivitis secondary to injury, stable)
Respiratory: Clear to Auscultation and Non Labored Respirations; Negative Wheezes or Rales
Cardiac: Regular Rhythm and S1/S2
GI: Soft and Nontender
Musculoskeletal: No Clubbing, No Cyanosis and No Edema
Skin: Warm
Neuro: Awake, Alert and Oriented
Psych: Calm
Data Reviewed
-
Medical Tests (Nuc Med, Echo etc): Report Reviewed by me and Discussed with Patient
Labs: Labs Reviewed by me and Discussed with Patient
[2025-04-09] MEDS: IMDUR (EXTENDED RELEASE) 30 MG PO (11:25)
[2025-04-09 11:35] VITALS: BP 119/51
[2025-04-09 12:14] LABS: Glucose - Point of Care 122 mg/dl (70-99)
[2025-04-09 15:40] VITALS: BP 125/61
--- NOTE | 2025-04-09 16:35 | PTCARENOTE ---
Pt AAO x3, CHAVEZ well, OOB to BR; emanuel well, no c/o weakness/dizziness. VSS. Telemetry: NSR. On room air- pulse ox 94%, pt still c/o slight DUVAL but syas she feels 'much better' today. Abd soft, rounded, emanuel PO well. Voids clear yellow urine in
BR- instructed to void on specipan to monitor I?O; pt attempting compliance; stated 'I keep missing it'. Resting in bed at present. Will continue to monitor.
--- NOTE | 2025-04-09 16:49 | CM ---
Met with pt bedside. On room air. Continues on IV lasix. Possible DC tomorrow. Pt lives the [place] but is staying with her dtr at this time-temporarily
Plan: Discharge to Dtr's home when stable
[2025-04-09 17:08] LABS: Glucose - Point of Care 102 mg/dl (70-99)
[2025-04-09] MEDS: CRESTOR 10 MG PO (17:13)
[2025-04-09 19:45] VITALS: BP 122/59
[2025-04-09] MEDS: TOPROL XL 75 MG PO (20:49)
[2025-04-09 21:48] LABS: Glucose - Point of Care 124 mg/dl (70-99)
[2025-04-09 23:11] VITALS: BP 116/52
[2025-04-10 03:30] VITALS: BP 122/55
[2025-04-10 05:58] VITALS: BMI 24.4
[2025-04-10 07:31] VITALS: BP 143/71
[2025-04-10 07:51] LABS: Glucose - Point of Care 110 mg/dl (70-99)
[2025-04-10 08:40] LABS: Hematocrit 31.4 % (37.0-47.0); Hemoglobin 9.6 g/dL (12.0-16.0); Mean Corp Hgb Conc. 30.6 g/dL (33.0-37.0); Mean Corpuscular Volume 87.7 fL (81.0-99.0); Platelet Count 283 10^3/uL (130-400); Red Cell Dist. Width 16.3 % (11.5-14.5)
[2025-04-10] MEDS: LASIX IV (08:50)
[2025-04-10] MEDS: TRICOR 145 MG PO (08:54)
[2025-04-10] MEDS: ELIQUIS 2.5 MG PO (08:54)
[2025-04-10] MEDS: IMDUR (EXTENDED RELEASE) 30 MG PO (08:55)
[2025-04-10] MEDS: APRESOLINE 50 MG PO (08:55)
[2025-04-10] MEDS: FARXIGA 10 MG PO (08:55)
[2025-04-10] MEDS: TOPROL XL 75 MG PO (08:55)
[2025-04-10] MEDS: COLACE 100 MG PO (08:55)
[2025-04-10] MEDS: VITAMIN B-12 1000 MCG PO (08:55)
[2025-04-10] MEDS: LASIX 40 MG PO (08:55)
[2025-04-10] MEDS: ERYTHROMYCIN 0.5% OPHTHALMIC OINTMENT 1 APPLIC OPHTH ×2 (08:56→13:30)
[2025-04-10 09:35] LABS: Blood Urea Nitrogen 50 mg/dl (7-17); Calcium 9.1 mg/dl (8.4-10.2); Carbon Dioxide 28 mmol/L (22-30); Chloride 104 mmol/L (98-107); Estimated Creatinine Clearance 24 ml/min; Glucose 98 mg/dl (70-99); Potassium 4.3 mmol/L (3.5-5.1); Sodium 137 mmol/L (135-145); eGFR 29.94
--- NOTE | 2025-04-10 10:31 | W.PN.HOSP.TC ---
Today's Communication/Plan
-
.
Assessment / Plan
Assessment / Plan
Geri Tong is a 79F w/ PMHx of paroxysmal atrial fibrillation, chronic heart failure (unsure pEF vs rEF), myelodysplastic syndrome, HTN, HLD, type 2 diabetes mellitus, and CKD 3 who presented to the emergency department with shortness of breath,
dyspnea on exertion, and lower extremity edema x 24 hours. In the emergency department patient exhibited bibasilar rales with 1+ lower extremity edema telemetry with labs showing a BNP level of greater than 27,000 as well as acute kidney injury
with a creatinine of 1.7 (previous Cr last year 1.3-1.4.) the patient was admitted for IV Lasix and cardiopulmonary evaluation.
1. Acute on Chronic Heart Failure Exacerbation
- CXR (04/07): Small loculated right pleural effusion, trace left pleural effusion
- proBNP > 27,000 on admission
- ECHO (04/08): Moderately reduced EF of 35%
- Check I's and O's, daily weight
- 04/10: Weight down 3kg since admission
- Continue diuresis; Lasix transitioned to p.o.
- Creatinine continues to be 1.7 since admission, even after starting Lasix.
- I suspect this is may be her new baseline, repeat outpatient BMP in 1 week.
- GDMT: Lasix, Metoprolol, Farxiga
- Afterload control: Hydralazine and Imdur
2. Nonischemic myocardial injury secondary to CHF
- Denies chest pain
- Troponin 0.05 --> 0.03, trended to peak
- EKG shows normal sinus rhythm, LVH, ST elevation in V2, nonspecific T wave inversions
- Ischemic evaluation in outpatient setting per cardiology
3. CKD
- Creatinine 1.7, possible new baseline as patient arrived with this value, and does not have documented Cr in 1 year.
4. Right eye conjunctivitis from pillow injury
- No vision difficulty, does not bother patient
5. Paroxysmal atrial fibrillation
- Eliquis renally dosed (patient >78 y/o, Cr 1.7)
- Discontinue Cardizem per cardiology recommendations
- Continue metoprolol, increased dose to 100 mg p.o. twice daily
6. Myelodysplastic syndrome
- Continue ferrous sulfate
- Hemoglobin stable 9.4
- Has been receiving iron infusion every other day today would have been the fifth and final session
7. Essential hypertension
- Continue hydralazine/metoprolol
- Imdur added this admission
8. History of Hiatal hernia
9. History of Gastric polyps
10. Hyperlipidemia
- Continue statin, fenofibrate
11. Type 2 diabetes
- hold metformin
- Insulin sliding scale
- Continue Jardiance
12. Tracehal Deviation on CXR
- Possible thyroid enlargement
- Outpatient follow up
CODE: Full
DVT PPx: Eliquis
Diet: Cardiac
Anticipated Discharge: Today
Subjective/Interval History
-
Date of Service: April 10, 2025
Patient with no acute complaints overnight.
Endorses interval improvement in symptoms POA.
Notes mostly resolved lower extremity edema.
SOB is about 90 percent resolved.
Objective Data
-
Labs:
Laboratory Results
04/10/25
08:17
WBC 8.1
Hgb 9.6 L
Hct 31.4 L
Plt Count 283
Sodium 137
Potassium 4.3
Chloride 104
Carbon Dioxide 28
BUN 50 H
Creatinine 1.7 H
Glucose 98
Calcium 9.1
Vital Signs:
Vital Signs
Temp Pulse Resp BP Pulse Ox
98.3 F 80 16 143/71 93
04/10/25 07:31 04/10/25 08:55 04/10/25 07:31 04/10/25 08:55 04/10/25 07:31
I&O
04/09/25 04/10/25 04/11/25
06:59 06:59 06:59
Intake Total 720 / 720 1140 / 1140
Output Total 250 / 250
Balance 720 / 720 890 / 890
Review of Systems
-
History Source: Patient
All other systems: Reviewed and negative
Physical Exam
-
General: No Apparent Distress, Comfortable and Conversant
HEENT: Normocephalic and Atraumatic
Respiratory: Non Labored Respirations and Other (no wheezing, rales or rhonchi; mildly decreased breath sounds at the bases bilaterally. )
Cardiac: Regular Rhythm and S1/S2
GI: Soft
Skin: Warm
Neuro: Awake, Alert and Oriented
Psych: Calm
Data Reviewed
-
Labs: Labs Reviewed by me and Discussed with Patient
--- NOTE | 2025-04-10 11:19 | W.PN.CARDCBS ---
Today's Communication / Plan
-
oral lasix
outpt cardiac follow up
Impression / Plan
-
.
PCP: Dion Bates
Primary specialty molder: Dr. Marroquin
Impression:
Acute HFrEF
Moderate to severe mitral regurgitation
Elevated troponin, peak 0.05
Hypertension
Paroxysmal atrial fibrillation
MDS
Hyperlipidemia
chronic kidney disease
Diabetes mellitus
Echo 04/08/2025: Global hypokinesis, EF 38%, stage II diastolic function, normal RV, moderate to severe mitral regurgitation, pulmonary artery systolic pressure 39 mmHg, severely dilated left atrium, mild MAC
Plan:
Her echo shows global hypokinesis, with moderate to severe mitral regurgitation.
It is suspected that her CM is nonischemic however she would be recommended an outpt ischemic eval with stress testing vs cath
Her cr is stable overall at 1.7 however, cr would increase potential for renal complications with cath.
Cont oral lasix. Her wt is down and the lowest on record here.
Cont GDMT including Farxiga., Metoprolol XL 100 mg p.o. twice daily, hydralazine, and nitrates.
If renal function improves as outpt, eventual consideration for ACEI/ARB, possibly Entresto.
Given CKD no spironolactone at present.
For PAFib, cont Eliquis appropriately dosed for decreased renal function and age. Remains in sinus rhythm.
Will ararnge outpt cardiac follow up
Please recall if needed
Progress Note - Gang Bore Operator
Subjective
Date of Service: April 10, 2025
Pt seen and examined. No complaints. No chest pain or shortness of breath.
Objective
Labs:
04/10/25 08:17
04/10/25 08:17
Labs
Hgb 9.6 g/dL (12.0-16.0) L 04/10/25 08:17
Hct 31.4 % (37.0-47.0) L 04/10/25 08:17
Plt Count 283 10^3/uL (130-400) 04/10/25 08:17
Sodium 137 mmol/L (135-145) 04/10/25 08:17
Potassium 4.3 mmol/L (3.5-5.1) 04/10/25 08:17
BUN 50 mg/dl (7-17) H 04/10/25 08:17
Creatinine 1.7 mg/dL (0.6-1.0) H 04/10/25 08:17
Glucose 98 mg/dl (70-99) 04/10/25 08:17
Troponins
04/07/25 04/07/25 04/08/25
15:28 21:08 02:58
Troponin I 0.053 H* 0.050 H* 0.039 H*
04/08/25
09:45
Troponin I 0.033
Vital Signs and I&O:
Vital Signs
Temp Pulse Resp BP Pulse Ox
98.3 F 80 16 143/71 93
04/10/25 07:31 04/10/25 08:55 04/10/25 07:31 04/10/25 08:55 04/10/25 07:31
Vital Signs
Temp Pulse Resp BP Pulse Ox
98.3 F 80 16 143/71 93
04/10/25 07:31 04/10/25 08:55 04/10/25 07:31 04/10/25 08:55 04/10/25 07:31
Intake & Output
04/08/25 04/09/25 04/10/25 04/11/25
06:59 06:59 06:59 06:59
Intake Total 720 / 720 1140 / 1140
Output Total 250 / 250
Balance 720 / 720 890 / 890
Physical Exam
Physical Exam
General: No acute distress, AAOX3
Neck: Negative JVD
Heart: Regular, Negative S3 positive S1/S2, Negative S4, No murmur
Lungs: CTA b/l, negative wheezes/rales/rhonchi
Abd: Positive BS, NT/ND, neg rebound/rigidity/guarding
Ext: Negative cyanosis/clubbing/edema
Neuro: nonfocal
[2025-04-10 11:32] VITALS: BP 132/64
[2025-04-10 12:00] LABS: Glucose - Point of Care 114 mg/dl (70-99)
--- NOTE | 2025-04-10 12:57 | CM ---
Pt discharged to daughter's home. No needs
--- NOTE | 2025-04-10 16:54 | W.DCSUMMARY ---
Discharge Summary
Discharge Data
Date of Admission: 04/07/25
Date of Discharge: 04/10/25
Total time spent discharging patient (in min): 45
-
Pending Results: No
Hospital Course
Geri Tong is a 79 year old female with a past medical history of paroxysmal atrial fibrillation, chronic heart failure, myelodysplastic syndrome, hypertension, hyperlipidemia, type 2 diabetes mellitus, and chronic kidney disease stage III who
presented to the emergency department at [facility] on 04/07/2025 with shortness of breath, dyspnea on exertion, and lower extremity edema for approximately 1 days time.
ED COURSE
In the emergency department, patient exhibited bibasilar rales with 1+ lower extremity edema with labs showing a BNP level of greater than 27,000 and a creatinine of 1.7 (last seen creatinine approximately 1.4 in 2023). Chest x-ray revealed a small
loculated right pleural effusion and trace left pleural effusion. The patient was admitted for intravenous diuretics and cardiopulmonary evaluation of suspected heart failure. Although initial troponin was 0.05, it the subsequent troponin trended
down to 0.03. EKG in the emergency department showed normal sinus rhythm, left ventricular hypertrophy, ST elevations in V2, and nonspecific T wave inversions.
HOSPITAL COURSE
After initiation of intravenous Lasix, the patient's subjective symptoms markedly improved day by day. Cardiopulmonary evaluation included initiation of goal-directed medical therapy for heart failure as well as afterload reduction. Over the
course of her stay, these medications were added and titrated. In addition, the patient had an echocardiogram performed which showed global hypokinesis with moderate to severe mitral regurgitation. Ejection fraction was 30% and there was stage II
diastolic dysfunction and a severely dilated left atrium.
Ultimately, the patient was discharged on Lasix 40 mg p.o. daily. Diltiazem was discontinued and transition to Toprol-XL 100 mg p.o. twice daily. The patient was continued on her SGLT2 inhibitor for goal-directed medical therapy.
Mineralocorticoid receptor antagonists were decided against due to the patient's steady creatinine of 1.7 over the course of hospital stay. Additionally, for afterload reduction, Imdur 30 mg daily was added to the patient's regimen.
DISCHARGE RECOMMENDATIONS
Follow a low-cholesterol diet.
Weight yourself daily. Call your primary care provider for weight gain of more than 3 pounds in 1 day or 5 pounds in 1 week.
Follow up with your primary care provider in less than 1 week.
The patient's Eliquis dosing was changed to 2.5 mg twice daily (renal dosing) due to age and creatinine level.
Follow-up with a basic metabolic panel at transition of care visit. I suspect that the patient's baseline creatinine may now be 1.7.
Lasix 40 mg p.o. daily was added to the patient's medication regimen for heart failure symptoms.
Cardizem was discontinued, and metoprolol 75 mg twice daily was added to the patient's medication regimen for rate control in the setting of atrial fibrillation as well as goal-directed medical therapy for heart failure.
Patient should continue her home medication, Jardiance, as part of goal-directed medical therapy for heart failure concomitant to type 2 diabetes.
Patient should continue her home medication, hydralazine, in addition to the newly added medication Imdur for additional afterload reduction.
Follow-up with an eye injury the patient sustained prior to hospitalization (stable). Erythromycin ointment was provided.
Follow-up with the evaluation specialist on 04/24/2025.
Medication changes as above.
In house evaluation specialist recommended outpatient ischemic evaluation with stress testing versus catheterization.
Discharge Plan
-
Patient Disposition: Home (Routine Discharge)
Discharge Diagnosis/Procedures: Acute Heart Failure with Reduced Ejection Fraction
Moderate to Severe Mitral Regurgitation
Hypertension
Non-ischemic Myocardial Injury
History of Atrial Fibrillation
History of Myelodysplastic Syndrome
History of Chronic Kidney Disease
History of Diabetes Mellitus
Condition: Fair
Diet: Low Cholesterol
Activity: As tolerated
Blood Work: Repeat Basic Metabolic Panel in One Week
Specialty Instructions: Weigh Daily- Call MD for wt gain/loss 3 lbs overnight/5 lbs in 1 week
Activity Restrictions/Additional Instructions:
There is mild rightward deviation of the upper trachea on chest x-ray, which may be secondary to an enlarged thyroid. Consider nonemergent thyroid ultrasound for further evaluation if not previously evaluated.
Instructions: *[facility] Heart Failure Instructions
Referrals:
Dion Bates DO [Family Provider, Family Practice] - in less than 1 week
Cheyenne Walters PA-C [Specified Professional Personl, Cardiology] - 04/24/25 9:00 am
Referral Note: You have a cardiology follow-up appointment at the [place] office with Dr. Marroquin's physician administrative office assistant, Cheyenne. Please call with questions
Prescriptions:
New
isosorbide mononitrate 30 mg Tablet Extended Release 24 Hr
30 mg PO DAILY Qty: 30 0RF
erythromycin 5 mg/gram (0.5 %) Ointment
1 applic ophthalmic (eye) QID Qty: 1 0RF
Eliquis 2.5 mg Tablet
2.5 mg PO BID Qty: 30 0RF
furosemide 40 mg Tablet
40 mg PO DAILY Qty: 30 0RF
metoprolol succinate 25 mg tablet extended release 24 hr
75 mg PO BID Qty: 90 0RF
Continued
metformin 500 mg tablet
500 mg PO QPM
fenofibrate nanocrystallized 145 mg tablet
145 mg PO DAILY
Jardiance 10 mg tablet
10 mg PO DAILY
ferrous sulfate [iron] 325 mg (65 mg iron) Tablet
325 mg PO DAILY
hydralazine 50 mg Tablet
50 mg PO TID
cyanocobalamin (vitamin B-12) 1,000 mcg tablet
1,000 mcg PO DAILY
rosuvastatin [Crestor] 10 mg Tablet
10 mg PO QPM
docusate sodium [Colace] 100 mg capsule
100 mg PO BID
Discontinued
diltiazem HCl 300 mg capsule,extended release 24hr
300 mg PO HS
metoprolol tartrate 50 mg Tablet
25 mg PO QPM
Eliquis 5 mg Tablet
5 mg PO BID
metoprolol tartrate 50 mg tablet
50 mg PO DAILY
Discharge Orders:
Discharge Patient (As Directed); Ordered 04/10/25
Ordered By: Vince Reyes
Discharge Date and Time
Discharge Date/Time: 04/10/25 15:29
Print Language: LATVIAN
--- NOTE | 2025-04-11 12:06 | W.HF.CON ---
Heart Failure
- LV Function
Left ventricular function study result: LV Ejection fraction 36-40%
Ejection Fraction Percentage: 38
- ARNI
Patient already on ARNI: No
Heart Failure ARNI Contraindication: Acute Renal Failure
- ACEI/ARB
Patient already on ACEI/ARB: No
Heart Failure ACEI/ARB Contraindication: Acute Renal Failure
- Beta Reg
Patient already on Evidence Based Beta Reg: Yes
- Mineralocorticord Receptor Antagonist
Patient already on MRA: No
Heart Failure MRA Contraindication: Acute Renal Insufficiency
- SGLT-2 Inhibitor
Patient already on SGLT-2 Inhibitor: Yes
- Hydralazine & Isosorbide Dinitrate
Patient already on Hydralazine & Isosorbide Dinitrate: Yes
- Afib Anticoagulation
Patient already on Anticoagulation for Afib: Yes
- NYHA CHF Classification
NYHA CHF Classification Level: Class III - Symptoms w/ min exertion, interferes w/ nml daily activity
- ACC/AHA Stage
ACC/AHA Stage: Stage C: Symptomatic Heart Failure
== END 2025-04-10 15:29 | disposition home or self-care (01) | DRG 291 ==
LOC: 4 EAST ACU 14:17
PROVIDERS: Emergency Medicine; ADMITTING PHYSICIAN Hospitalist; ATTENDING PHYSICIAN Internal Medicine; CONSULT PHYSICIAN Internal Medicine Cardiovascular Disease; EMERGENCY PHYSICIAN Emergency Medicine; FAMILY PHYSICIAN Family Medicine
PROC: 3E02340 Introduction of Influenza Vaccine into Muscle, Percutaneous Approach (ICD-10-PCS; 2025-04-10)
DX: I13.0 Hypertensive heart and chronic kidney disease with heart failure and stage 1 through stage 4 chronic kidney disease, or unspecified chronic kidney disease (principal); I50.21 Acute systolic (congestive) heart failure; N17.9 Acute kidney failure, unspecified; I5A Non-ischemic myocardial injury (non-traumatic); N18.31 Chronic kidney disease, stage 3a; H10.9 Unspecified conjunctivitis; I48.0 Paroxysmal atrial fibrillation; Z79.01 Long term (current) use of anticoagulants; D46.9 Myelodysplastic syndrome, unspecified; Z87.891 Personal history of nicotine dependence; Z23 Encounter for immunization; Z79.899 Other long term (current) drug therapy
CPT/HCPCS: 71046; 80048; 80053; 82962; 83036; 83735; 83880; 84484; 85025; 85027; 93005; 93306; 96374; 99285

== ENCOUNTER → 2025-04-24 10:21 | Outpatient (REF) | payer OTHER, SELFPAY ==
[2025-04-24 13:11] LABS: Blood Urea Nitrogen 94 mg/dl (7-17); Calcium 9.8 mg/dl (8.4-10.2); Carbon Dioxide 27 mmol/L (22-30); Chloride 95 mmol/L (98-107); Glucose 103 mg/dl (70-99); Potassium 5.2 mmol/L (3.5-5.1); Sodium 131 mmol/L (135-145); eGFR 18.85
== END ==
LOC: REG 10:21
PROVIDERS: ATTENDING PHYSICIAN Physician Assistant
DX: I50.20 Unspecified systolic (congestive) heart failure (principal); I48.0 Paroxysmal atrial fibrillation
CPT/HCPCS: 36415; 80048; 84443

== ENCOUNTER → 2025-04-29 11:17 | Outpatient (REF) | payer OTHER, SELFPAY ==
[2025-04-29 14:06] LABS: Blood Urea Nitrogen 73 mg/dl (7-17); Calcium 9.2 mg/dl (8.4-10.2); Carbon Dioxide 28 mmol/L (22-30); Chloride 100 mmol/L (98-107); Glucose 190 mg/dl (70-99); Potassium 4.6 mmol/L (3.5-5.1); Sodium 135 mmol/L (135-145); eGFR 21.97
== END ==
LOC: REG 11:17
PROVIDERS: ATTENDING PHYSICIAN Internal Medicine Cardiovascular Disease; FAMILY PHYSICIAN Family Medicine
DX: I50.20 Unspecified systolic (congestive) heart failure (principal); I10 Essential (primary) hypertension; N18.9 Chronic kidney disease, unspecified
CPT/HCPCS: 36415; 80048

== ENCOUNTER → 2025-05-26 12:08 | Outpatient (REF) | payer OTHER, SELFPAY ==
[2025-05-26 14:08] LABS: Blood Urea Nitrogen 71 mg/dl (7-17); Calcium 9.2 mg/dl (8.4-10.2); Carbon Dioxide 24 mmol/L (22-30); Chloride 102 mmol/L (98-107); Glucose 203 mg/dl (70-99); Potassium 4.8 mmol/L (3.5-5.1); Sodium 136 mmol/L (135-145); eGFR 23.23
== END ==
LOC: REG 12:08
PROVIDERS: ATTENDING PHYSICIAN Internal Medicine Cardiovascular Disease; FAMILY PHYSICIAN Family Medicine
DX: I10 Essential (primary) hypertension (principal)
CPT/HCPCS: 36415; 80048